=== PATIENT | female | born 1975 | race American Indian/Alaskan Native ===

== ENCOUNTER 2016-06-04 16:58 | Emergency (ER) | payer OTHER ==
[2016-06-04 17:13] VITALS: BMI 33.0
[2016-06-04 17:16] VITALS: BP 117/81; PULSE 86; RESP 16; TEMP 98.8; O2SAT 100
--- NOTE | 2016-06-04 17:41 | ED PDOC ---
Arrival/HPI - General Chief Complaint: Dental Pain Time Seen by Provider: 06/04/16 17:36 Historian: Patient - History of Present Illness Narrative History of Present Illness (Text): 06/04/16 17:37 41-year-old female presents today with a 2 day history of worsening left lower dental pain. Patient states she's been having problems with the teeth for a long time but over the past few days the pain has become severe. Patient states taking Tylenol for pain at home without improvement. Patient denies fevers or chills. Denies trismus or drooling. Patient states the pain radiates up into the jaw. No other complaints Past Medical History - Provider Review Nursing Documentation Reviewed: Yes - Travel History Have you recently traveled outside [place] w/in the past 3 mons?: No - Infectious Disease Hx of Infectious Diseases: None - Cardiac Hx Cardiac Disorders: No - Pulmonary Hx Respiratory Disorders: No - Neurological Hx Neurological Disorder: No - HEENT Hx HEENT Disorder: No - Renal Hx Renal Disorder: No - Endocrine/Metabolic Hx Systemic Lupus Erythematosus: Yes - Hematological/Oncological Hx Blood Disorders: No - Integumentary Hx Dermatological Disorder: No - Musculoskeletal/Rheumatological Hx Arthritis: Yes - Gastrointestinal Hx Gastrointestinal Disorders: No - Genitourinary/Gynecological Hx Genitourinary Disorders: No - Psychiatric Hx Psychophysiologic Disorder: No Hx Depression: No Hx Emotional Abuse: No Hx Physical Abuse: No Hx Substance Use: No - Past Surgical History Past Surgical History: No Previous - Anesthesia Hx Anesthesia: No Hx Anesthesia Reactions: No Hx Malignant Hyperthermia: No - Suicidal Assessment Feels Threatened In Home Enviroment: No Family/Social History - Physician Review Nursing Documentation Reviewed: Yes Family/Social History: Unknown Family HX Smoking Status: Never Smoked Hx Alcohol Use: No Hx Substance Use: No Allergies/Home Meds Allergies/Adverse Reactions: Allergies No Known Allergies Allergy (Verified 06/05/13 10:10) Home Medications: Home Meds Medication Instructions Recorded Confirmed Naproxen [Naproxen] 500 mg PO BID PRN 06/05/13 06/05/13 Review of Systems - Review of Systems Constitutional: absent: Fatigue, Fevers ENT: Other (toothache) Respiratory: absent: SOB, Cough Cardiovascular: absent: Chest Pain, Palpitations Gastrointestinal: absent: Abdominal Pain, Diarrhea, Nausea, Vomiting Genitourinary Female: absent: Dysuria, Frequency, Hematuria Musculoskeletal: absent: Arthralgias Skin: absent: Rash, Pruritis Neurological: absent: Headache, Dizziness Physical Exam Vital Signs Reviewed: Yes Vital Signs Temp Pulse Resp BP Pulse Ox 06/04/16 17:13 98.8 F 86 16 117/81 100 Temperature: Afebrile Blood Pressure: Normal Pulse: Regular Respiratory Rate: Normal Appearance: Positive for: Well-Appearing, Non-Toxic, Uncomfortable Pain Distress: Mild Mental Status: Positive for: Alert and Oriented X 3 - Systems Exam Head: Present: Atraumatic. No: Swelling Conjunctiva: Present: Normal Ears: Present: Normal, NORMAL TM Mouth: Present: Moist Mucous Membranes, Normal Lips, Normal Tounge. No: Drooling, Trismus, Normal Teeth (+ gingival edema, + left lower dental tenderness; no abscess, noted; no trismus or drooling. ) Pharnyx: Present: Normal. No: ERYTHEMA, EXUDATE Nose (External): Present: Atraumatic Nose (Internal): Present: Normal Inspection Neck: Present: Normal Range of Motion, Trachea Midline. No: Lymphadenopathy Respiratory/Chest: Present: Clear to Auscultation, Good Air Exchange. No: Respiratory Distress, Accessory Muscle Use Cardiovascular: Present: Regular Rate and Rhythm, Normal S1, S2. No: Murmurs Neurological: Present: GCS=15, Speech Normal Skin: Present: Warm Psychiatric: Present: Alert, Oriented x 3 Medical Decision Making ED Course and Treatment: 06/04/16 17:44 Patient is nontoxic well-appearing in no distress with stable vital signs No trismus or drooling, moist mucous membranes Amoxicillin Toradol I advised follow-up with the dentist within the next 2 days. I advised immediate return is symptoms worsen persist or if new concerning symptoms develop Patient verbalizes understanding of discharge instructions and need for immediate followup. Impression: Toothache Motrin every 6 hours as needed for pain Tramadol tablet every 6 hours as needed for moderate to severe pain: May cause drowsiness Amoxicillin 3 times daily 10 days Follow-up with the dentist within the next 2 days Return immediately if symptoms worsen persist or if new concerning symptoms develop Disposition/Present on Arrival - Present on Arrival Any Indicators Present on Arrival: No History of DVT/PE: No History of Uncontrolled Diabetes: No Urinary Catheter: No History of Decub. Ulcer: No History Surgical Site Infection Following: None - Disposition Have Diagnosis and Disposition been Completed?: Yes Diagnosis: Toothache Disposition: HOME/ ROUTINE Disposition Time: 17:38 Patient Plan: Discharge Condition: GOOD Discharge Instructions (ExitCare): Toothache (ED) Additional Instructions: Motrin every 6 hours as needed for pain Tramadol tablet every 6 hours as needed for moderate to severe pain: May cause drowsiness Amoxicillin 3 times daily 10 days Follow-up with the dentist within the next 2 days Return immediately if symptoms worsen persist or if new concerning symptoms develop Prescriptions: Amoxicillin 500 mg PO TID #30 tab Ibuprofen [Motrin] 600 mg PO Q6H PRN #20 tab PRN Reason: pain/fever reduction traMADol [Ultram] 50 mg PO Q6H PRN #10 tab PRN Reason: moderate to severe pain Referrals: Iker Bermeo DMD [Staff Provider] - [place] [facility] [place] [facility] [place] - Follow up with primary Forms: WORK NOTE
== END 2016-06-04 18:05 | disposition home or self-care (01) ==
LOC: ED 16:58
DX: K08.89 Other specified disorders of teeth and supporting structures (principal); M32.9 Systemic lupus erythematosus, unspecified
CPT/HCPCS: 96372; 99282; J1885

== ENCOUNTER 2016-07-02 16:38 | Emergency (ER) | payer OTHER ==
[2016-07-02 16:38] VITALS: BMI 33.0
[2016-07-02 16:49] VITALS: BP 108/73; PULSE 90; TEMP 98.8
--- NOTE | 2016-07-02 17:06 | ED PDOC ---
Arrival/HPI - General Chief Complaint: Lower Extremity Problem/Injury Time Seen by Provider: 07/02/16 17:02 Historian: Patient - History of Present Illness Narrative History of Present Illness (Text): 07/02/16 17:06 41 y/o female, no pmh, nkda, not on any control, c/o lt. calf pain x 3 days with no fall or trauma. 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 calf pain about 3 days ago, no chest pain or shortness of breath, no palpitation, no numbness or tingling, no dizziness, no change in vision, no other medical or psychological complaints. Past Medical History - Provider Review Nursing Documentation Reviewed: Yes - Infectious Disease Hx of Infectious Diseases: None - Cardiac Hx Cardiac Disorders: No - Pulmonary Hx Respiratory Disorders: No - Neurological Hx Neurological Disorder: No - HEENT Hx HEENT Disorder: No - Renal Hx Renal Disorder: No - Endocrine/Metabolic Hx Systemic Lupus Erythematosus: Yes - Hematological/Oncological Hx Blood Disorders: No - Integumentary Hx Dermatological Disorder: No - Musculoskeletal/Rheumatological Hx Arthritis: Yes Other/Comment: LUPUS - Gastrointestinal Hx Gastrointestinal Disorders: No - Genitourinary/Gynecological Hx Genitourinary Disorders: No - Psychiatric Hx Psychophysiologic Disorder: No Hx Depression: No Hx Emotional Abuse: No Hx Physical Abuse: No Hx Substance Use: No - Past Surgical History Past Surgical History: No Previous - Anesthesia Hx Anesthesia: No - Suicidal Assessment Feels Threatened In Home Enviroment: No Family/Social History - Physician Review Nursing Documentation Reviewed: Yes Family/Social History: Unknown Family HX Smoking Status: Never Smoked Hx Alcohol Use: No Hx Substance Use: No Allergies/Home Meds Allergies/Adverse Reactions: Allergies No Known Allergies Allergy (Verified 07/02/16 16:43) Home Medications: Home Meds Medication Instructions Recorded Confirmed Hydroxychloroquine Sulfate 200 mg PO BID 07/02/16 07/02/16 [Plaquenil] Naproxen [Naprosyn] 500 mg PO Q8 PRN 07/02/16 07/02/16 Review of Systems - Review of Systems Constitutional: absent: Fatigue, Fevers Eyes: absent: Vision Changes ENT: absent: Hearing Changes Respiratory: absent: SOB, Cough Cardiovascular: absent: Chest Pain Gastrointestinal: absent: Abdominal Pain, Nausea, Vomiting Musculoskeletal: Myalgias. absent: Arthralgias, Back Pain, Neck Pain, Joint Swelling Skin: absent: Rash, Pruritis, Skin Lesions Neurological: absent: Headache, Dizziness, Focal Weakness Physical Exam Vital Signs Reviewed: Yes Vital Signs Temp Pulse Resp BP Pulse Ox 07/02/16 17:11 98.8 F 90 18 108/73 97 07/02/16 16:45 98.8 F 90 16 108/73 100 Temperature: Afebrile Blood Pressure: Normal Pulse: Regular Respiratory Rate: Normal Appearance: Positive for: Well-Appearing, Non-Toxic, Comfortable Pain Distress: Moderate Mental Status: Positive for: Alert and Oriented X 3 - Systems Exam Head: Present: Atraumatic, Normocephalic Pupils: Present: PERRL Extroacular Muscles: Present: EOMI Conjunctiva: Present: Normal Mouth: Present: Moist Mucous Membranes Neck: Present: Normal Range of Motion Respiratory/Chest: Present: Clear to Auscultation, Good Air Exchange. No: Respiratory Distress, Accessory Muscle Use Cardiovascular: Present: Regular Rate and Rhythm, Normal S1, S2. No: Murmurs Abdomen: Present: Normal Bowel Sounds. No: Tenderness, Distention, Peritoneal Signs Back: Present: Normal Inspection Upper Extremity: Present: Normal Inspection. No: Cyanosis, Edema Lower Extremity: Present: Normal Inspection, Other (Lt. lower extremity: +ttp on the left calf gastrocnemius region, negative miguel and mohr signs, FROM without limitation, sensation intact, motor 5/5, +DPPT pulses, capillary refill < 2 seconds, neurovascular intact. ). No: Edema Neurological: Present: GCS=15, CN II-XII Intact, Speech Normal Skin: Present: Warm, Dry, Normal Color. No: Rashes Psychiatric: Present: Alert, Oriented x 3, Normal Insight, Normal Concentration Medical Decision Making ED Course and Treatment: 07/02/16 17:10 -CK -LLE venuous doppler -toradol IM -observe and reassess 07/02/16 18:34 -Labs are non-significant except CK 235, advised stay hydrated. -LLE venuous doppler: as per preliminary report, no acute DVT -Pain decreased, will discharge home. -Discharge home with motrin, flexeril, massage your leg and stretch it, avoid wearing high heels, no running up and down the stairs until pain improved, follow up with your own pmd and physical therapist within 2 days, return to the ER for any new or worsening signs or symptoms. - Lab Interpretations Lab Results: Lab Results 07/02/16 17:15: Total Creatine Kinase 235 H, CK-MB (CK-2) 1.4, CK-MB (CK-2) % Cancelled I have reviewed the lab results: Yes Interpretation: Abnormal lab values (CK 235) - RAD Interpretation Radiology Orders: 07/02/16 17:02 DUPLEX LOWER EXTRM VEIN LEFT [US] Stat LLE venuous doppler: as per preliminary report, no acute DVT Director Of Education And Training: Radiologist - Medication Orders Current Medication Orders: Discontinued Medications Ketorolac Tromethamine (Toradol) 60 mg IM STAT STA Stop: 07/02/16 17:03 Last Admin: 07/02/16 17:28 Dose: 60 mg - PA / LIFE TRAINER / Resident Statement / has reviewed & agrees with the documentation as recorded. Disposition/Present on Arrival - Present on Arrival Any Indicators Present on Arrival: No History of DVT/PE: No History of Uncontrolled Diabetes: No Urinary Catheter: No History of Decub. Ulcer: No History Surgical Site Infection Following: None - Disposition Have Diagnosis and Disposition been Completed?: Yes Diagnosis: Leg pain Disposition: HOME/ ROUTINE Disposition Time: 18:35 Patient Plan: Discharge Condition: GOOD Additional Instructions: Discharge home with motrin, flexeril, massage your leg and stretch it, avoid wearing high heels, no running up and down the stairs until pain improved, follow up with your own pmd and physical therapist within 2 days, return to the ER for any new or worsening signs or symptoms. Prescriptions: Cyclobenzaprine [Cyclobenzaprine HCl] 10 mg PO TID #21 tab Ibuprofen [Motrin] 600 mg PO QID PRN #24 tab PRN Reason: Other Referrals: [facility] [place] [facility] [place] - Follow up with primary Sonny Gallegos MD [Staff Provider] - Follow up with primary Forms: WORK NOTE
[2016-07-02 17:14] VITALS: RESP 18; O2SAT 97
--- NOTE | 2016-07-02 18:38 | US ---
PROCEDURE: Left lower extremity venous US HISTORY: Leg pain and swelling. Evaluate for DVT. PHYSICIAN(S): Дмитрий Beltran MD. TECHNIQUE: Duplex sonography and color-flow Doppler with graded compression were used to evaluate the deep venous system of the left lower extremity. The exam is somewhat limited by body habitus and edema. FINDINGS: The visualized deep venous system of the left lower extremity is sonographically normal and compressible. Normal wave forms and augmentation are seen. There is no sonographic evidence for deep venous thrombosis in the visualized segments of the left lower extremity. IMPRESSION: 1. No sonographic evidence for deep venous thrombosis in the visualized segments of the left lower extremity.
== END 2016-07-02 18:44 | disposition home or self-care (01) ==
LOC: ED 16:38
DX: M79.605 Pain in left leg (principal); M32.9 Systemic lupus erythematosus, unspecified
CPT/HCPCS: 82550; 82553; 93971; 96372; 99284; J1885

== ENCOUNTER 2017-02-05 14:34 | Inpatient (IN) | payer OTHER ==
[2017-02-05 14:58] VITALS: BMI 26.6
--- NOTE | 2017-02-05 15:35 | ED PDOC ---
Arrival/HPI - General Chief Complaint: Eye Problem Time Seen by Provider: 02/05/17 15:05 - History of Present Illness Narrative History of Present Illness (Text): 02/05/17 15:33 41 yo female, hx of ra, presents with left "eye lid drooping" x 2 days. states started out of nowhere. reports "leg swelling". no fevers, no other weakness, no other complaints. Past Medical History - Provider Review Nursing Documentation Reviewed: Yes - Infectious Disease Hx of Infectious Diseases: None - Cardiac Hx Cardiac Disorders: No - Pulmonary Hx Respiratory Disorders: No - Neurological Hx Neurological Disorder: No - HEENT Hx HEENT Disorder: No - Renal Hx Renal Disorder: No - Endocrine/Metabolic Hx Hyperthyroidism: Yes Hx Systemic Lupus Erythematosus: Yes - Hematological/Oncological Hx Blood Disorders: No - Integumentary Hx Dermatological Disorder: No - Musculoskeletal/Rheumatological Hx Arthritis: Yes Hx Rheumatoid Arthritis: Yes Other/Comment: LUPUS - Gastrointestinal Hx Gastrointestinal Disorders: No - Genitourinary/Gynecological Hx Genitourinary Disorders: No - Psychiatric Hx Psychophysiologic Disorder: No Hx Depression: No Hx Emotional Abuse: No Hx Physical Abuse: No Hx Substance Use: No - Past Surgical History Past Surgical History: No Previous - Anesthesia Hx Anesthesia: No Hx Anesthesia Reactions: No - Suicidal Assessment Feels Threatened In Home Enviroment: No Family/Social History - Physician Review Nursing Documentation Reviewed: Yes Family/Social History: Unknown Family HX Smoking Status: Never Smoked Hx Alcohol Use: No Hx Substance Use: No Allergies/Home Meds Allergies/Adverse Reactions: Allergies No Known Allergies Allergy (Verified 07/02/16 16:43) Home Medications: Home Meds Medication Instructions Recorded Confirmed Hydroxychloroquine Sulfate 200 mg PO BID 07/02/16 02/05/17 [Plaquenil] Naproxen [Naprosyn] 500 mg PO Q8 PRN 07/02/16 02/05/17 Folic Acid 1 mg PO DAILY 02/05/17 02/05/17 Methotrexate 3 mg PO QWK 02/05/17 02/05/17 Review of Systems - Review of Systems Constitutional: Normal Eyes: Normal ENT: Normal Respiratory: Normal Cardiovascular: Normal Gastrointestinal: Normal Genitourinary Female: Normal Musculoskeletal: Normal Skin: Normal Neurological: Other (eyelid droop) Endocrine: Normal Hemo/Lymphatic: Normal Psychiatric: Normal Physical Exam Vital Signs Temp Pulse Resp BP Pulse Ox 02/05/17 16:40 98.6 F 88 16 142/81 98 02/05/17 14:58 98.6 F 78 16 139/64 100 Temperature: Afebrile Blood Pressure: Normal Pulse: Regular Respiratory Rate: Normal Appearance: Positive for: Well-Appearing, Non-Toxic, Comfortable Pain Distress: None Mental Status: Positive for: Alert and Oriented X 3 - Systems Exam Head: Present: Atraumatic, Normocephalic, Other ((+)left pytosis) Pupils: Present: PERRL Extroacular Muscles: Present: EOMI Conjunctiva: Present: Normal Mouth: Present: Moist Mucous Membranes Neck: Present: Normal Range of Motion Respiratory/Chest: Present: Clear to Auscultation, Good Air Exchange. No: Respiratory Distress, Accessory Muscle Use Cardiovascular: Present: Regular Rate and Rhythm, Normal S1, S2. No: Murmurs Abdomen: Present: Normal Bowel Sounds. No: Tenderness, Distention, Peritoneal Signs Back: Present: Normal Inspection Upper Extremity: Present: Normal Inspection. No: Cyanosis, Edema Lower Extremity: Present: Normal Inspection. No: Edema Neurological: Present: GCS=15, CN II-XII Intact, Speech Normal Skin: Present: Warm, Dry, Normal Color. No: Rashes Psychiatric: Present: Alert, Oriented x 3, Normal Insight, Normal Concentration Medical Decision Making ED Course and Treatment: 02/05/17 18:23 r/o mysthenia, dvt, metabolic, infectious etilogy- labs pending discussed with dr segal engagement quality consultant, requests mri/mra. dr toscano accepts. pt neuro intact. - Lab Interpretations Lab Results: 02/05/17 16:03 02/05/17 16:03 Lab Results 02/05/17 16:03: Urine HCG, Qual Negative 02/05/17 16:03: Sodium 140, Potassium 3.9, Chloride 103, Carbon Dioxide 26, Anion Gap 15, BUN 9, Creatinine 0.9, Est GFR ( Amer) > 60, Est GFR (Non- Af Amer) > 60, Random Glucose 86, Calcium 9.2, Total Bilirubin 0.3, AST 32, ALT 22, Alkaline Phosphatase 69, Total Protein 9.4 H, Albumin 4.1, Globulin 5.3, Albumin/Globulin Ratio 0.8 L 02/05/17 16:03: WBC 3.7 L, RBC 3.51, Hgb 10.2 L, Hct 31.5 L, MCV 89.7, MCH 29.1 , MCHC 32.4, RDW 14.0, Plt Count 327, MPV 9.8, Gran % 72.3 H, Lymph % (Auto) 17.5 L, Smith % (Auto) 5.9, Eos % (Auto) 3.8, Baso % (Auto) 0.5, Gran # 2.68, Lymph # 0.7 L, Smith # 0.2, Eos # 0.1, Baso # 0.02 02/05/17 16:00: Triglycerides 134, Cholesterol 124 L, LDL Cholesterol Direct 62 , HDL Cholesterol 29 - RAD Interpretation Radiology Orders: 02/05/17 15:31 CHEST ONE VIEW [RAD] Stat DUPLEX LOWER EXTRM VEIN BILAT [US] Stat 02/05/17 16:46 BRAIN WITHOUT CONTRAST [MRI] Stat MRA HEAD WITHOUT CONTRAST [MRI] Stat - Medication Orders Current Medication Orders: Discontinued Medications Aspirin (Ecotrin) 81 mg PO DAILY [facility] Last Admin: 02/07/17 09:41 Dose: 81 mg Atorvastatin Calcium (Lipitor) 40 mg PO DIN [facility] Last Admin: 02/06/17 17:21 Dose: 40 mg Folic Acid (Folic Acid) 1 mg PO DAILY [facility] Last Admin: 02/07/17 09:42 Dose: 1 mg Hydroxychloroquine Sulfate (Plaquenil) 200 mg PO BID [facility] Last Admin: 02/07/17 09:42 Dose: 200 mg Sodium Chloride (Sodium Chloride 0.9%) 500 mls @ 999 mls/hr IV .Q31M STA Stop: 02/06/17 07:37 Last Admin: 02/06/17 08:30 Dose: 999 mls/hr eMAR Start Stop Document 02/06/17 08:30 VELMA (Rec: 02/06/17 10:26 VELMA [id number]) Intravenous Solution Start Date 02/06/17 Start Time 08:30 End Date 02/06/17 End time 09:50 Total Infusion Time 80 Levothyroxine Sodium (Synthroid) 100 mcg PO STAT ONE Stop: 02/06/17 13:21 Last Admin: 02/06/17 17:22 Dose: 100 mcg Methotrexate (Methotrexate) 3 mg PO QWK [place] Pneumococcal Polyvalent Vaccine (Pneumovax 23 Vaccine) 0.5 ml IM .ONCE ONE Stop: 02/05/17 22:13 Disposition/Present on Arrival - Present on Arrival Any Indicators Present on Arrival: No History of DVT/PE: No History of Uncontrolled Diabetes: No Urinary Catheter: No History of Decub. Ulcer: No History Surgical Site Infection Following: None - Disposition Have Diagnosis and Disposition been Completed?: Yes Diagnosis: Ptosis Disposition: HOSPITALIZED Disposition Time: 06:00 Condition: STABLE
[2017-02-05 16:20] LABS: BASO # 0.02 K/mm3 (0.0-2.0); BASO % 0.5 % (0.0-3.0); EOS # 0.1 (0.0-0.7); EOS % 3.8 % (1.5-5.0); GRAN # 2.68 (1.4-6.5); GRAN % 72.3 % (50.0-68.0); HEMATOCRIT 31.5 % (36.0-48.0); LYMPH # 0.7 (1.2-3.4); LYMPH % 17.5 % (22.0-35.0); MEAN CELL VOLUME 89.7 fl (80.0-105.0); MEAN CORPUSCULAR HEMOGLOBIN 29.1 pg (25.0-35.0); MEAN CORPUSCULAR HGB CONC 32.4 g/dl (31.0-37.0); MEAN PLATELET VOLUME 9.8 fl (7.0-11.0); MONO # 0.2 (0.1-0.6); MONO % 5.9 % (1.0-6.0); WHITE BLOOD COUNT 3.7 10^3/ul (4.5-11.0)
[2017-02-05 16:21] LABS: ALB/GLOB RATIO 0.8 (1.1-1.8); ALKALINE PHOSPHATASE 69 U/L (38-126); ALT/SGPT 22 U/L (7-56); AST/SGOT 32 U/L (14-36); BILIRUBIN,TOTAL 0.3 mg/dL (0.2-1.3); BLOOD UREA NITROGEN 9 mg/dL (7-21); CALCIUM 9.2 mg/dL (8.4-10.5); CARBON DIOXIDE 26 mmol/L (21-33); CHLORIDE 103 mmol/L (98-107); GFR AFRICAN-AMERICAN > 60; GLUCOSE,RANDOM 86 mg/dL (70-110); POTASSIUM 3.9 mmol/L (3.6-5.0); SODIUM 140 mmol/L (132-148); TOTAL PROTEIN 9.4 g/dL (5.8-8.3)
[2017-02-05 18:04] LABS: PH,URINE 8.5 (4.7-8.0); URINE BILIRUBIN NEGATIVE (NEGATIVE); URINE BLOOD NEGATIVE (NEGATIVE); URINE GLUCOSE (UA) NEGATIVE (NEGATIVE); URINE KETONE NEGATIVE (NEGATIVE); URINE LEUKOCYTE ESTERASE NEGATIVE Leu/uL (NEGATIVE); URINE PROTEIN NEGATIVE mg/dL (<30 mg/dL); URINE UROBILINOGEN 0.2 E.U./dL (<1 E.U./dL)
[2017-02-05 18:07] LABS: URINE APPEARANCE CLEAR (CLEAR); URINE COLOR YELLOW (YELLOW)
--- NOTE | 2017-02-05 18:16 | RAD ---
HISTORY: weakness COMPARISON: Chest x-ray 06/05/13 TECHNIQUE: Chest, one view. FINDINGS: External artifact related to the patient's hair obscures evaluation of the lung apices/soft tissues of the neck. LUNGS: No focal consolidation. Please note that chest x-ray has limited sensitivity for the detection of pulmonary masses. PLEURA: No significant pleural effusion identified. No definite pneumothorax . CARDIOVASCULAR: Heart size appears within normal limits. OSSEOUS STRUCTURES: No acute osseous abnormality identified. VISUALIZED UPPER ABDOMEN: Unremarkable. OTHER FINDINGS: None. IMPRESSION: No focal consolidation, significant pleural effusion, or definite pneumothorax identified.
--- NOTE | 2017-02-05 18:45 | MRI ---
EXAM: MR Angiography Head Without Intravenous Contrast EXAM DATE/TIME: 02/05/2017 4:46 PM CLINICAL HISTORY: The patient age is 41 years old and is female; Signs and symptoms; Other: Left eye droop; Patient HX: Patient has a history of lupus. Left eye droop. Raymundo wong; Additional info: [facility] exam id and description: Mri mra heads mra head without contrast TECHNIQUE: Magnetic resonance angiography images of the head without intravenous contrast. COMPARISON: No relevant prior studies available. FINDINGS: Right internal carotid artery: No acute findings. Intracranial segment is patent with no significant stenosis. No aneurysm. Right anterior cerebral artery: No occlusion or significant stenosis. No aneurysm. Right middle cerebral artery: There is heterogeneous signal intensity of the M1 segment of the right middle cerebral artery, without significant stenosis or occlusion. There is no significant stenosis of the M2 segments of the right middle cerebral artery. No aneurysm. Right posterior cerebral artery: There is hypoplasia of the P1 segment of the right posterior cerebral artery. The right superior cerebellar artery and the right P1 segment appeared to have a common origin. The right posterior cerebral artery is supplied by both the anterior and posterior circulation. No occlusion. No aneurysm. Right vertebral artery: A dominant left vertebral artery is identified, without significant stenosis or occlusion. Left internal carotid artery: No acute findings. Intracranial segment is patent with no significant stenosis. No aneurysm. Left anterior cerebral artery: No occlusion or significant stenosis. No aneurysm. Left middle cerebral artery: No occlusion or significant stenosis. No aneurysm. Left posterior cerebral artery: No occlusion or significant stenosis. No aneurysm. Left vertebral artery: The right vertebral artery is small in caliber on the raw data. Flow within the right vertebral artery is poorly visualized, suggestive of occlusion. Basilar artery: No occlusion or significant stenosis. No aneurysm. IMPRESSION: 1.A dominant left vertebral artery is identified. The right vertebral artery is small in caliber on the raw data. Flow within the right vertebral artery is poorly visualized, suggestive of occlusion. Correlation with an MRA of the neck with/without contrast is recommended. 2.Additional findings described above.
--- NOTE | 2017-02-05 18:58 | MRI ---
EXAM: MR Head Without Intravenous Contrast EXAM DATE/TIME: 02/05/2017 4:46 PM CLINICAL HISTORY: The patient age is 41 years old and is female; Signs and symptoms; Other: Left eye droop; Patient HX: Patient has a history of lupus. Left eye droop. Raymundo wong; Additional info: [facility] exam id and description: Mri br s brain without contrast TECHNIQUE: Magnetic resonance images of the head/brain without intravenous contrast in multiple planes. COMPARISON: No relevant prior studies available. FINDINGS: Brain: There is no restricted diffusion within the brain to suggest acute ischemic change. There are a few tiny foci of high FLAIR signal intensity within the cerebral white matter. There is no mass effect or restricted diffusion associated with these foci. This white matter disease is nonspecific as to etiology. Possible etiologies include chronic small vessel ischemic disease, foci of demyelination, post-traumatic change, as well as additional infectious, inflammatory and autoimmune etiologies. No cerebral edema. No midline shift. No abnormal subdural fluid collections. Ventricles: No ventriculomegaly. Bones/joints: No acute abnormality. Lymph nodes: There is an intraparotid lymph node or nodule within the right parotid gland measuring 0.8 x 0.6 cm. Sinuses: Mucous retention cysts or polyps are identified within the left maxillary sinus and frontal sinus. There is opacification of a left posterior ethmoid air cell. Mastoid air cells: No mastoid effusion. Orbits: No acute abnormality, as visualized. Sella: There is an empty sella. IMPRESSION: 1. There is no restricted diffusion within the brain to suggest acute ischemic change. 2. There are a few tiny foci of high FLAIR signal intensity within the cerebral white matter. This white matter disease is nonspecific as to etiology, as detailed above. 3. There is an intraparotid lymph node or nodule within the right parotid gland measuring 0.8 x 0.6 cm. 4. Paranasal sinus disease is noted above. 5. Incidental/non-acute findings are described above.
--- NOTE | 2017-02-05 19:10 | CP.PCM.HP ---
<Martín Smith - Last Filed: 02/06/17 16:36> History of Present Illness - History of Present Illness History of Present Illness: 41 year old female with a past medical history of SLE, Rheumatoid arthritis, hypothyroidism who comes in complaining of left eyelid drooping and bilateral leg swelling for the past two days. The patient denies any inciting events leading up to the symptoms. The patient denies alleiviating or modifying factors. The patient denies any headaches, double vision, chest pain, shortness of breath, lightheadedness, dizziness, changes in vision, syncopal episodes, sick contacts, recent travel, recent ocular surgery, or any other complaints. Past medical history: See HPI Past surgical history: 2 Abortions, 1 Allergies: Seasonal Medications: Reviewed. See MAR Family history: Mom(HTN, DM). Sister( Breast cancer) PMD: None Sr. Strategic Sourcing Manager:Dr. Joseph Present on Admission - Present on Admission Any Indicators Present on Admission: No Review of Systems - Constitutional Constitutional: As Per HPI - EENT Eyes: As Per HPI Ears: As Per HPI Nose/Mouth/Throat: As Per HPI - Cardiovascular Cardiovascular: As Per HPI - Respiratory Respiratory: As Per HPI - Gastrointestinal Gastrointestinal: As Per HPI - Musculoskeletal Musculoskeletal: As Per HPI - Integumentary Integumentary: As Per HPI - Neurological Neurological: As Per HPI - Psychiatric Psychiatric: As Per HPI - Endocrine Endocrine: As Per HPI - Hematologic/Lymphatic Hematologic: As Per HPI Past Patient History - Infectious Disease Hx of Infectious Diseases: None - Past Social History Smoking Status: Never Smoked - CARDIAC Hx Cardiac Disorders: No - PULMONARY Hx Respiratory Disorders: No - NEUROLOGICAL Hx Neurological Disorder: No - HEENT Hx HEENT Problems: No - RENAL Hx Chronic Kidney Disease: No - ENDOCRINE/METABOLIC Hx Hyperthyroidism: Yes Hx Systemic Lupus Erythematosus: Yes - HEMATOLOGICAL/ONCOLOGICAL Hx Blood Disorders: No - INTEGUMENTARY Hx Dermatological Problems: No - MUSCULOSKELETAL/RHEUMATOLOGICAL Hx Arthritis: Yes Hx Rheumatoid Arthritis: Yes Other/Comment: LUPUS - GASTROINTESTINAL Hx Gastrointestinal Disorders: No - GENITOURINARY/GYNECOLOGICAL Hx Genitourinary Disorders: No - PSYCHIATRIC Hx Psychophysiologic Disorder: No Hx Depression: No Hx Emotional Abuse: No Hx Physical Abuse: No Hx Substance Use: No - SURGICAL HISTORY Hx Surgeries: No - ANESTHESIA Hx Anesthesia: No Hx Anesthesia Reactions: No Meds Allergies/Adverse Reactions: Allergies Allergy/AdvReac Type Severity Reaction Status Date / Time No Known Allergies Allergy Verified 07/02/16 16:43 Physical Exam - Head Exam Head Exam: ATRAUMATIC, NORMAL INSPECTION, NORMOCEPHALIC - Eye Exam Pupil Exam: NORMAL ACCOMODATION, PERRL Additional comments: Ptosis appreciated in the left eye. - ENT Exam ENT Exam: Mucous Membranes Moist, Normal Exam - Neck Exam Neck exam: Positive for: Normal Inspection. Negative for: Lymphadenopathy, Thyromegaly - Respiratory Exam Respiratory Exam: Clear to Auscultation Bilateral, NORMAL BREATHING PATTERN. absent: Chest Wall Tenderness, Prolonged Expiratory Phase, Respiratory Distress - Cardiovascular Exam Cardiovascular Exam: REGULAR RHYTHM, +S1, +S2. absent: Gallop, Rubs - GI/Abdominal Exam GI & Abdominal Exam: Normal Bowel Sounds, Soft. absent: Hyperactive Bowel Sounds, Hypoactive Bowel Sounds, Organomegaly, Tenderness - Extremities Exam Extremities exam: Positive for: normal inspection. Negative for: full ROM, joint swelling, pedal edema, tenderness - Back Exam Back exam: NORMAL INSPECTION. absent: CVA tenderness (L), CVA tenderness (R), paraspinal tenderness - Neurological Exam Neurological exam: Alert, CN II-XII Intact, Oriented x3 - Psychiatric Exam Psychiatric exam: Normal Affect, Normal Mood - Skin Skin Exam: Dry, Intact, Normal Color Results - Vital Signs Recent Vital Signs: Last Vital Signs Temp 98.6 F 02/05/17 16:40 Pulse 88 02/05/17 16:40 Resp 16 02/05/17 16:40 BP 142/81 02/05/17 16:40 Pulse Ox 98 02/05/17 16:40 - Labs Result Diagrams: 02/06/17 05:30 02/06/17 05:30 Labs: Laboratory Results - last 24 hr 02/05/17 18:02 Urine Color Yellow Urine Appearance Clear Urine pH 8.5 Ur Specific [place] 1.015 Urine Protein Negative Urine Glucose (UA) Negative Urine Ketones Negative Urine Blood Negative Urine Nitrate Negative Urine Bilirubin Negative Urine Urobilinogen 0.2 Ur Leukocyte Esterase Negative Assessment & Plan - Assessment and Plan (Free Text) Assessment: 41 year old female with a past medical history of Hypothryodism, SLE, and R.A. who was admitted for acute ptosis of left eye. Plan: 1. Acute ptosis of left eye (M.G. vs. CVA vs. CN Palsy vs. TIA vs. Hypothryoidism) -NIHSS Score: 1. Physical exam was only pertinent for left eyelid drooping. Motor strengthy intact bilaterally. -MRI head findings: no restricted diffusion within the brain to suggest acute ischemic change, few tiny foci of high FLAIR signal intentsityin within the cerebral white matter. White matter disease is nonspecific. Intraparotid lymph node or nodule within the right parotid gland measuring .8x .6 cm. -MRA head w/o contrast: dominant left vertebral artery, right vertebral artery is small in caliber on raw data, flow within the right vertebral artery is poorly visualized, suggestive of occlusion, correlate with MRA of neck with/ without contrast. -Spoke with [facility]: Dr. Lara regarding imaging and he recommended an MRA of neck w/o contrast to be ordered. Will f/u with rec's. -Aspirin and Lipitor started. -Neurology consulted. Will f/u with rec's. 2. Acute leg swelling -Duplex U/s ordered. Will f/u with results. 3. h/o of SLE -continue home meds. 4. h/o of Rheumatoid arthritis -continue home meds 5.h/o of Hypothyroidism -continue home meds DVT ppx - Heparin 5000 SC Q12. <Peter Campos - Last Filed: 02/06/17 18:37> Results - Vital Signs Recent Vital Signs: Last Vital Signs Temp 98.4 F 02/06/17 08:48 Pulse 75 02/06/17 18:00 Resp 20 02/06/17 08:48 BP 112/67 02/06/17 08:48 Pulse Ox 98 02/06/17 08:48 - Labs Result Diagrams: 02/06/17 05:30 02/06/17 05:30 Labs: Laboratory Results - last 24 hr 02/05/17 02/05/17 02/05/17 20:06 20:06 20:06 WBC RBC Hgb Hct MCV MCH MCHC RDW Plt Count MPV Gran % Lymph % (Auto) [place] % (Auto) Eos % (Auto) Baso % (Auto) Gran # Lymph # [place] # Eos # Baso # ESR 120 H PT 12.0 INR 1.10 H APTT 33.0 Sodium Potassium Chloride Carbon Dioxide Anion Gap BUN Creatinine Est GFR ( Amer) Est GFR (Non-Af Amer) Random Glucose Calcium Total Bilirubin AST ALT Alkaline Phosphatase C-React Prot High Sens > 15.00 H Total Protein Albumin Globulin Albumin/Globulin Ratio Thyroxine (T4) Total T3 TSH 3rd Generation 36.90 H 02/06/17 02/06/17 02/06/17 05:30 05:30 08:00 WBC 2.8 L* D RBC 3.49 L Hgb 9.9 L Hct 31.1 L MCV 89.1 MCH 28.4 MCHC 31.8 RDW 14.2 Plt Count 325 MPV 10.0 Gran % 53.9 Lymph % (Auto) 32.4 [place] % (Auto) 10.5 H Eos % (Auto) 2.5 Baso % (Auto) 0.7 Gran # 1.48 Lymph # 0.9 L [place] # 0.3 Eos # 0.1 Baso # 0.02 ESR PT INR APTT Sodium 143 Potassium 4.0 Chloride 107 Carbon Dioxide 22 Anion Gap 18 BUN 8 Creatinine 0.7 Est GFR ( Amer) > 60 Est GFR (Non-Af Amer) > 60 Random Glucose 96 Calcium 9.1 Total Bilirubin 0.4 AST 44 H D ALT 18 Alkaline Phosphatase 66 C-React Prot High Sens Total Protein 8.9 H Albumin 3.9 Globulin 5.0 Albumin/Globulin Ratio 0.8 L Thyroxine (T4) 5.2 L Total T3 1.29 TSH 3rd Generation Attending/Attestation - Attestation I have personally seen and examined this patient.: Yes I have fully participated in the care of the patient.: Yes I have reviewed all pertinent clinical information: Yes Notes (Text): I have seen and examined the patient at bedside. Agree with the above note with the following additions/ exceptions: Briefly this is 41 year old female with history of SLE, Rheumatoid arthritis, hypothyroidism who comes for evaluation of acute onset of ptosis x 1 day. Degree of ptosis does not vary over the course of the day or with fatigue. No associated headache or diplopia. No history of ocular surgery, trauma and does not wear contact lens. There is no FH of ptosis. Pupils are equal round and reactive. MRI and MRA reviewed. MRA neck pending for evaluation of right vertebral artery. Duplex LE pending. Patient was recently diagnosed with hypothyroidism and was started on synthroid. Endo consult pending. Upon discharge patient will follow up with Dr Joseph. Dr Peter Campos
--- NOTE | 2017-02-05 19:28 | US ---
HISTORY: Leg pain and swelling. Evaluate for DVT PHYSICIAN(S): Дмитрий Beltran MD. TECHNIQUE: Duplex sonography and color-flow Doppler with graded compression were used to evaluate the deep venous systems of both lower extremities. FINDINGS: The visualized deep venous systems of both lower extremities are sonographically normal and compressible. Normal wave forms and augmentation are seen. There is no sonographic evidence for deep venous thrombosis in the visualized segments of both lower extremities. IMPRESSION: No sonographic evidence for deep venous thrombosis in the visualized segments of both lower extremities.
[2017-02-05 20:05] LABS: CHOLESTEROL 124 mg/dL (130-200)
[2017-02-05 20:23] LABS: INR 1.1 (0.93-1.08)
[2017-02-05] MEDS ORDERED: Pneumococcal 23-Valent Vaccine IM ONE (22:12)
[2017-02-05] MEDS ORDERED: Influenza Vaccine 60 mcg/0.5 mL SYR (4YR UP) IM ONE (22:12)
[2017-02-06 03:18] VITALS: RESP 20
[2017-02-06] MEDS ORDERED: Sodium Chloride 0.9% 500 ML IV STA (07:07)
[2017-02-06 07:20] LABS: ALB/GLOB RATIO 0.8 (1.1-1.8); ALKALINE PHOSPHATASE 66 U/L (38-126); ALT/SGPT 18 U/L (7-56); AST/SGOT 44 U/L (14-36); BILIRUBIN,TOTAL 0.4 mg/dL (0.2-1.3); BLOOD UREA NITROGEN 8 mg/dL (7-21); CALCIUM 9.1 mg/dL (8.4-10.5); CARBON DIOXIDE 22 mmol/L (21-33); CHLORIDE 107 mmol/L (98-107); GFR AFRICAN-AMERICAN > 60; GLUCOSE,RANDOM 96 mg/dL (70-110); SODIUM 143 mmol/L (132-148); TOTAL PROTEIN 8.9 g/dL (5.8-8.3)
[2017-02-06 07:40] LABS: BASO # 0.02 K/mm3 (0.0-2.0); BASO % 0.7 % (0.0-3.0); EOS # 0.1 (0.0-0.7); EOS % 2.5 % (1.5-5.0); GRAN # 1.48 (1.4-6.5); GRAN % 53.9 % (50.0-68.0); HEMATOCRIT 31.1 % (36.0-48.0); LYMPH # 0.9 (1.2-3.4); LYMPH % 32.4 % (22.0-35.0); MEAN CELL VOLUME 89.1 fl (80.0-105.0); MEAN CORPUSCULAR HEMOGLOBIN 28.4 pg (25.0-35.0); MEAN CORPUSCULAR HGB CONC 31.8 g/dl (31.0-37.0); MONO # 0.3 (0.1-0.6); MONO % 10.5 % (1.0-6.0); RED CELL DISTRIBUTION WIDTH 14.2 % (11.5-14.5)
[2017-02-06 07:42] LABS: WHITE BLOOD COUNT 2.8 10^3/ul (4.5-11.0)
[2017-02-06 08:59] LABS: T4 5.2 ug/dL (5.5-11.0)
[2017-02-06 09:13] LABS: T3 1.29 ng/mL (0.97-1.69)
[2017-02-06] MEDS ORDERED: Gadodiamide 287 MG/ML VIAL (20ML) IV ONE (11:05)
--- NOTE | 2017-02-06 12:35 | MRI ---
PROCEDURE: MR Angiography of the neck with and without contrast HISTORY: abnormal findings on mra COMPARISON: None available. TECHNIQUE: Contrast enhanced and [id number] angiography of the neck was performed. Rotating 3D maximum intensity projection images of the cervical carotid and vertebral arteries were generated. 20 cc of Omniscan FINDINGS: RIGHT CAROTID ARTERIES: Common Carotid Artery: Normal. Carotid Bifurcation: Normal. Internal Carotid Artery:Normal. External Carotid Artery (proximal branches): Normal. LEFT CAROTID ARTERIES: Common Carotid Artery: Normal. Carotid Bifurcation: Normal. Internal Carotid Artery:Normal. External Carotid Artery (proximal branches): Normal. VERTEBRAL ARTERIES: Right Vertebral Artery: Not visualize, probably hypoplastic Left Vertebral Artery: Normal. OTHER FINDINGS: None. 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 No evidence of carotid stenosis.
[2017-02-06] MEDS ORDERED: Levothyroxine 100 MCG TAB PO ONE (13:20)
--- NOTE | 2017-02-06 14:41 | CON ---
DATE: NEUROLOGY CONSULTATION REASON FOR CONSULTATION: Drooping of the left eye. HISTORY OF PRESENT ILLNESS: The patient is a 41-year-old female who has been asked for evaluation of drooping of the left eyelid. Her symptoms started about 2 days ago. Along with that she was experiencing some swelling of the right ankle. The patient does have history of rheumatoid arthritis and lupus. The patient denied any focal weakness in arms or legs. Denied to have any double vision. Denies having any headaches. Because of her symptoms, that is why she came to the emergency room. At the moment her droopiness is better. Denies any other complaints. PAST MEDICAL HISTORY: Includes rheumatoid arthritis, , and hypothyroidism. MEDICATIONS: Included naproxen p.r.n., methotrexate, Plaquenil, and folic acid. ALLERGIES: NO KNOWN DRUG ALLERGIES. FAMILY HISTORY: Mother has hypertension and diabetes. Sister has breast cancer. SOCIAL HISTORY: Denies smoking, use of alcohol, or illicit drugs. REVIEW OF SYSTEMS: Denies any headache, dizziness, chest pain, shortness of breath, abdominal pain, constipation, diarrhea, dysuria, cough or sputum production. PHYSICAL EXAMINATION: GENERAL: The patient is a middle-aged pleasant female lying on the bed, in no acute distress. VITAL SIGNS: Her blood pressure is 95/53, heart rate 72 per minute, breathing at a rate of 16 per minute, and temperature is 98 degrees Fahrenheit. HEENT: Head is normocephalic and atraumatic. NECK: Supple. There are no carotid bruit. LUNGS: Clear. CARDIOVASCULAR: S1 and S2 audible, no murmurs. ABDOMEN: Soft and nontender with bowel sounds present. NEUROLOGIC: Mental status, the patient is awake, alert, oriented to time, place and person. Speech is fluent. Naming and repetition is normal. Memory and cognition are intact. Cranial Nerve Examination: Pupils are 3 mm bilaterally reactive to light. Visual bang are full. Extraocular movements are intact. There is no facial asymmetry. The palate is upgoing bilaterally and tongue is midline. Motor Examination: Tone is normal. Power is 5/5 bilaterally in all extremities. Reflexes are +1 and symmetrical. Plantars downgoing bilaterally. Cerebellar examination, [id number] shows no dysmetria. LABORATORY DATA: Reviewed shows WBC 0.7, hemoglobin 10.9, hematocrit 31.5, and platelets of 327. Her sodium is 133, potassium 4.0, chloride 107, carbon dioxide content of 22, BUN of 18, creatinine 0.7, and glucose of 96. She had an MRI of the brain done shows no restricted diffusion within the brain to suggest ischemic change. Few tiny foci of high FLAIR or signal intensity within the cerebral white matter, nonspecific. Intraparotid lymph node or nodule within the right parotid gland. Paranasal sinus disease. She also had MRA of the brain, which shows no evidence of aneurysm. Dominant left vertebral artery is identified. Right vertebral artery is small in caliber on the raw data flow signal within right vertebral artery poorly visualized occlusion. IMPRESSION: Status post ptosis of the left eyelid, possibly secondary to underlying autoimmune disease causing possible vasculitis. RECOMMENDATIONS: 1. At the moment, the patient has no focal neurological deficit and the ptosis has resolved. 2. The patient to be continued on her methotrexate and Plaquenil. 3. The patient is ruled out for any stroke versus TIA. 4. The patient will be followed up as an outpatient. 5. No further neurological recommendations at present. Please call Neurology on an as-needed basis. Thank you for the opportunity to participate in the care of this patient. Romina Campos MD
--- NOTE | 2017-02-06 16:39 | CP.PCM.PN ---
<Martín Smith - Last Filed: 02/06/17 16:45> Subjective - Date & Time of Evaluation Date of Evaluation: 02/06/17 Time of Evaluation: 16:37 - Subjective Subjective: Patient seen and examined at bedside. Per nursing no acute events occurred overnight. The patient denies any chest pain, shortness of breath, fevers, chills, nausea, vomiting, lightheadedness, dizziness, abdominal pain, syncopal episodes, numbness or weakness in the lower extremities or any other complaints. Objective - Vital Signs/Intake and Output Vital Signs (last 24 hours): Temp Pulse Resp BP Pulse Ox 98.4 F 78 20 112/67 98 02/06/17 08:48 02/06/17 10:00 02/06/17 08:48 02/06/17 08:48 02/06/17 08:48 Intake and Output: 02/06/17 02/06/17 06:59 18:59 Intake Total 0 Balance 0 - Medications Medications: Current Medications Aspirin (Ecotrin) 81 mg PO DAILY [facility] Last Admin: 02/06/17 10:25 Dose: 81 mg Atorvastatin Calcium (Lipitor) 40 mg PO DIN [facility] Folic Acid (Folic Acid) 1 mg PO DAILY [facility] Last Admin: 02/06/17 10:25 Dose: 1 mg Hydroxychloroquine Sulfate (Plaquenil) 200 mg PO BID [facility] Last Admin: 02/06/17 10:25 Dose: 200 mg Methotrexate (Methotrexate) 3 mg PO QWK [facility] - Labs Labs: 02/06/17 05:30 02/06/17 05:30 PT 12.0 SECONDS (9.4-12.5) 02/05/17 20:06 INR 1.10 (0.93-1.08) H 02/05/17 20:06 APTT 33.0 Seconds (25.1-36.5) 02/05/17 20:06 - Head Exam Head Exam: ATRAUMATIC, NORMAL INSPECTION, NORMOCEPHALIC - Eye Exam Eye Exam: EOMI, PERRL. absent: Periorbital tenderness Pupil Exam: NORMAL ACCOMODATION, PERRL. absent: Irregular, Unequal Additional comments: Left eye ptosis - ENT Exam ENT Exam: Mucous Membranes Moist, Normal Exam, Normal Oropharynx - Neck Exam Neck Exam: Normal Inspection. absent: Lymphadenopathy, Thyromegaly - Respiratory Exam Respiratory Exam: Clear to Ausculation Bilateral, NORMAL BREATHING PATTERN. absent: Chest Wall Tenderness, Prolonged Expiratory Phase, Respiratory Distress - Cardiovascular Exam Cardiovascular Exam: REGULAR RHYTHM, RRR, +S1, +S2. absent: Gallop, Rubs - GI/Abdominal Exam GI & Abdominal Exam: Soft, Normal Bowel Sounds. absent: Rigid, Hyperactive Bowel Sounds - Extremities Exam Extremities Exam: Normal Inspection. absent: Joint Swelling, Pedal Edema, Tenderness - Back Exam Back Exam: NORMAL INSPECTION. absent: CVA tenderness (L), CVA tenderness (R), paraspinal tenderness - Neurological Exam Neurological Exam: Alert, Awake, CN II-XII Intact, Normal Gait, Oriented x3 - Psychiatric Exam Psychiatric exam: Normal Affect, Normal Mood - Skin Skin Exam: Dry, Intact, Normal Color Assessment and Plan - Assessment and Plan (Free Text) Assessment: 41 year old female with a past medical history of Hypothryodism, SLE, and R.A. who was admitted for acute ptosis of left eye. Plan: 1. Acute ptosis of left eye (M.G. vs. CVA vs. CN Palsy vs. TIA vs. Hypothryoidism) -NIHSS Score: 1. Physical exam was only pertinent for left eyelid drooping. Motor strength intact bilaterally. -Physical exam today showed an improvement in ptosis of the left eye. -MRI head findings: no restricted diffusion within the brain to suggest acute ischemic change, few tiny foci of high FLAIR signal intentsityin within the cerebral white matter. White matter disease is nonspecific. Intraparotid lymph node or nodule within the right parotid gland measuring .8x .6 cm. -MRA head w/o contrast: dominant left vertebral artery, right vertebral artery is small in caliber on raw data, flow within the right vertebral artery is poorly visualized, suggestive of occlusion, correlate with MRA of neck with/ without contrast. -MRA of neck showed a hypoplastic right vertebral artery with no demonstrated flow and no evidence of carotid stenosis. -Aspirin and Lipitor discontinued. -Neurology consulted. Rec's appreciated. 2. Acute leg swelling -Duplex U/s negative for DVT. 3. h/o of SLE -continue home meds. 4. h/o of Rheumatoid arthritis -continue home meds 5.h/o of Hypothyroidism -continue home meds DVT ppx - Heparin 5000 SC Q12. <Peter Campos B - Last Filed: 02/06/17 18:42> Objective - Vital Signs/Intake and Output Vital Signs (last 24 hours): Temp Pulse Resp BP Pulse Ox 98.4 F 75 20 112/67 98 02/06/17 08:48 02/06/17 18:00 02/06/17 08:48 02/06/17 08:48 02/06/17 08:48 Intake and Output: 02/06/17 02/06/17 06:59 18:59 Intake Total 0 Balance 0 - Medications Medications: Current Medications Aspirin (Ecotrin) 81 mg PO DAILY [facility] Last Admin: 02/06/17 10:25 Dose: 81 mg Atorvastatin Calcium (Lipitor) 40 mg PO DIN [facility] Last Admin: 02/06/17 17:21 Dose: 40 mg Folic Acid (Folic Acid) 1 mg PO DAILY [facility] Last Admin: 02/06/17 10:25 Dose: 1 mg Hydroxychloroquine Sulfate (Plaquenil) 200 mg PO BID [facility] Last Admin: 02/06/17 17:22 Dose: 200 mg Methotrexate (Methotrexate) 3 mg PO QWK [facility] - Labs Labs: 02/06/17 05:30 02/06/17 05:30 PT 12.0 SECONDS (9.4-12.5) 02/05/17 20:06 INR 1.10 (0.93-1.08) H 02/05/17 20:06 APTT 33.0 Seconds (25.1-36.5) 02/05/17 20:06 Attending/Attestation - Attestation I have personally seen and examined this patient.: Yes I have fully participated in the care of the patient.: Yes I have reviewed all pertinent clinical information, including history, physical exam and plan: Yes Notes (Text): I have seen and examined the patient at bedside. Agree with the above note with the following additions/ exceptions: Briefly this is 41 year old female with history of SLE, Rheumatoid arthritis, hypothyroidism who comes for evaluation of acute onset of ptosis x 2 days. Degree of ptosis does not vary over the course of the day or with fatigue. No associated headache or diplopia. No history of ocular surgery, trauma and does not wear contact lens. There is no FH of ptosis. Pupils are equal round and reactive. Today she denies any complaints. Ptosis has significantly improved. MRI and MRA reviewed. 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 Awaiting neurologist recommendation. Duplex LE negative. Patient was recently diagnosed with hypothyroidism and was started on synthroid. Endo consult was initially called however patient refused as she has seen percussion instrument tuner as an outpatient. Upon discharge patient will follow up with Dr Joseph. Dr Peetr Campos
[2017-02-07 09:46] VITALS: BP 106/68; TEMP 97.8; O2SAT 100
[2017-02-07 10:31] VITALS: PULSE 80
--- NOTE | 2017-02-07 12:01 | CP.PCM.DIS ---
<Martín Smith - Last Filed: 02/07/17 16:16> Provider - Provider Date of Admission: 02/05/17 16:51 Attending physician: Aliza Ramos MD Time Spent in preparation of Discharge (in minutes): 45 Hospital Course - Lab Results Lab Results: Most Recent Lab Values WBC 2.8 10^3/ul (4.5-11.0) L* D 02/06/17 05:30 RBC 3.49 10^6/uL (3.5-6.1) L 02/06/17 05:30 Hgb 9.9 g/dL (12.0-16.0) L 02/06/17 05:30 Hct 31.1 % (36.0-48.0) L 02/06/17 05:30 MCV 89.1 fl (80.0-105.0) 02/06/17 05:30 MCH 28.4 pg (25.0-35.0) 02/06/17 05:30 MCHC 31.8 g/dl (31.0-37.0) 02/06/17 05:30 RDW 14.2 % (11.5-14.5) 02/06/17 05:30 Plt Count 325 10^3/uL (120.0-450.0) 02/06/17 05:30 MPV 10.0 fl (7.0-11.0) 02/06/17 05:30 Gran % 53.9 % (50.0-68.0) 02/06/17 05:30 Lymph % (Auto) 32.4 % (22.0-35.0) 02/06/17 05:30 Vilas % (Auto) 10.5 % (1.0-6.0) H 02/06/17 05:30 Eos % (Auto) 2.5 % (1.5-5.0) 02/06/17 05:30 Baso % (Auto) 0.7 % (0.0-3.0) 02/06/17 05:30 Gran # 1.48 (1.4-6.5) 02/06/17 05:30 Lymph # 0.9 (1.2-3.4) L 02/06/17 05:30 Vilas # 0.3 (0.1-0.6) 02/06/17 05:30 Eos # 0.1 (0.0-0.7) 02/06/17 05:30 Baso # 0.02 K/mm3 (0.0-2.0) 02/06/17 05:30 ESR 120 mm/hr (0.0-20.0) H 02/05/17 20:06 PT 12.0 SECONDS (9.4-12.5) 02/05/17 20:06 INR 1.10 (0.93-1.08) H 02/05/17 20:06 APTT 33.0 Seconds (25.1-36.5) 02/05/17 20:06 Sodium 143 mmol/L (132-148) 02/06/17 05:30 Potassium 4.0 mmol/L (3.6-5.0) 02/06/17 05:30 Chloride 107 mmol/L (98-107) 02/06/17 05:30 Carbon Dioxide 22 mmol/L (21-33) 02/06/17 05:30 Anion Gap 18 (10-20) 02/06/17 05:30 BUN 8 mg/dL (7-21) 02/06/17 05:30 Creatinine 0.7 mg/dl (0.7-1.2) 02/06/17 05:30 Est GFR ( Amer) > 60 02/06/17 05:30 Est GFR (Non-Af Amer) > 60 02/06/17 05:30 Random Glucose 96 mg/dL (70-110) 02/06/17 05:30 Calcium 9.1 mg/dL (8.4-10.5) 02/06/17 05:30 Total Bilirubin 0.4 mg/dL (0.2-1.3) 02/06/17 05:30 AST 44 U/L (14-36) H D 02/06/17 05:30 ALT 18 U/L (7-56) 02/06/17 05:30 Alkaline Phosphatase 66 U/L (38-126) 02/06/17 05:30 C-React Prot High Sens > 15.00 mg/L (1.00-3.00) H 02/05/17 20:06 Total Protein 8.9 g/dL (5.8-8.3) H 02/06/17 05:30 Albumin 3.9 g/dL (3.0-4.8) 02/06/17 05:30 Globulin 5.0 gm/dL 02/06/17 05:30 Albumin/Globulin Ratio 0.8 (1.1-1.8) L 02/06/17 05:30 Triglycerides 134 mg/dL (35-160) 02/05/17 16:00 Cholesterol 124 mg/dL (130-200) L 02/05/17 16:00 LDL Cholesterol Direct 62 mg/dL (0-129) 02/05/17 16:00 HDL Cholesterol 29 mg/dL (29-60) 02/05/17 16:00 Thyroxine (T4) 5.2 ug/dL (5.5-11.0) L 02/06/17 08:00 Total T3 1.29 ng/mL (0.97-1.69) 02/06/17 08:00 TSH 3rd Generation 36.90 mIU/mL (0.46-4.68) H 02/05/17 20:06 Urine Color Yellow (YELLOW) 02/05/17 18:02 Urine Appearance Clear (CLEAR) 02/05/17 18:02 Urine pH 8.5 (4.7-8.0) 02/05/17 18:02 Ur Specific [place] 1.015 (1.005-1.035) 02/05/17 18:02 Urine Protein Negative mg/dL (<30 mg/dL) 02/05/17 18:02 Urine Glucose (UA) Negative mg/dL (NEGATIVE) 02/05/17 18:02 Urine Ketones Negative mg/dL (NEGATIVE) 02/05/17 18:02 Urine Blood Negative (NEGATIVE) 02/05/17 18:02 Urine Nitrate Negative (NEGATIVE) 02/05/17 18:02 Urine Bilirubin Negative (NEGATIVE) 02/05/17 18:02 Urine Urobilinogen 0.2 E.U./dL (<1 E.U./dL) 02/05/17 18:02 Ur Leukocyte Esterase Negative Micheal/uL (NEGATIVE) 02/05/17 18:02 Urine HCG, Qual Negative (NEGATIVE) 02/05/17 16:03 - Hospital Course Hospital Course: 41 year old female with a past medical history of SLE, Rheumatoid arthritis, hypothyroidism who comes in complaining of left eyelid drooping and bilateral leg swelling for the past two days. The patient denies any inciting events leading up to the symptoms. The patient denies alleviating or modifying factors. The patient denies any headaches, double vision, chest pain, shortness of breath, lightheadedness, dizziness, changes in vision, syncopal episodes, sick contacts, recent travel, recent ocular surgery, or any other complaints. The patient was admitted for further management. Specialist: Neurology While admitted the patient had and MRI head that showed no restricted diffusion within the brain to suggest acute ischemic change, few tiny foci of high FLAIR signal intentsityin within the cerebral white matter. White matter disease is nonspecific. Intraparotid lymph node or nodule within the right parotid gland measuring .8x .6 cm. The patient also had an MRA head w/o contrast that showed dominant left vertebral artery, right vertebral artery is small in caliber on raw data, flow within the right vertebral artery is poorly visualized, suggestive of occlusion , correlate with MRA of neck with/ without contrast. 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 The patient was seen by Neurology who recommended that stroke versus tia was ruled out, continue methotrexate and Plaquenil, and to follow up with as an outpatient basis. The patient was seen this morning and determined to be medically stable. The patient was given a one month supply of synthroid upon discharge. The patient was discharged home with instructions to follow up with PMD, Feed Mixer, and Community Resource Officer within one week of discharge. Discharge Exam - Head Exam Head Exam: ATRAUMATIC, NORMAL INSPECTION, NORMOCEPHALIC - Eye Exam Eye Exam: EOMI, Normal appearance, PERRL. absent: Periorbital tenderness Pupil Exam: NORMAL ACCOMODATION, PERRL. absent: Irregular, Unequal - ENT Exam ENT Exam: Mucous Membranes Moist, Normal Oropharynx - Respiratory Exam Respiratory Exam: Clear to PA & Lateral, NORMAL BREATHING PATTERN, UNREMARKABLE. absent: Prolonged Expiratory Phase, Respiratory Distress - Cardiovascular Exam Cardiovascular Exam: REGULAR RHYTHM, +S1, +S2 - GI/Abdominal Exam GI & Abdominal Exam: Normal Bowel Sounds, Unremarkable. absent: Distended, Hypoactive Bowel Sounds, Organomegaly - Extremities Exam Extremities exam: full ROM - Back Exam Back exam: NORMAL INSPECTION. absent: CVA tenderness (L), CVA tenderness (R), paraspinal tenderness - Neurological Exam Neurological exam: Alert, CN II-XII Intact, Oriented x3 - Psychiatric Exam Psychiatric exam: Normal Affect, Normal Mood - Skin Skin Exam: Dry, Intact, Normal Color, Warm Discharge Plan - Discharge Medications Prescriptions: Levothyroxine [Synthroid] 100 mcg PO DAILY #30 tab - Follow Up Plan Condition: GOOD Disposition: HOME/ ROUTINE Instructions: Ptosis (GEN) Additional Instructions: 1. Follow up with PMD of choice in 1 week. 2. Follow up with Rheumatology Dr. Joni Chambers in [place]. 3. Continue synthroid. Follow up TSH in 4 to 6 weeks. <Aliza Ramos - Last Filed: 02/07/17 17:55> Provider - Provider Date of Admission: 02/05/17 16:51 Attending physician: Aliza Ramos MD Hospital Course - Lab Results Lab Results: Most Recent Lab Values WBC 2.8 10^3/ul (4.5-11.0) L* D 02/06/17 05:30 RBC 3.49 10^6/uL (3.5-6.1) L 02/06/17 05:30 Hgb 9.9 g/dL (12.0-16.0) L 02/06/17 05:30 Hct 31.1 % (36.0-48.0) L 02/06/17 05:30 MCV 89.1 fl (80.0-105.0) 02/06/17 05:30 MCH 28.4 pg (25.0-35.0) 02/06/17 05:30 MCHC 31.8 g/dl (31.0-37.0) 02/06/17 05:30 RDW 14.2 % (11.5-14.5) 02/06/17 05:30 Plt Count 325 10^3/uL (120.0-450.0) 02/06/17 05:30 MPV 10.0 fl (7.0-11.0) 02/06/17 05:30 Gran % 53.9 % (50.0-68.0) 02/06/17 05:30 Lymph % (Auto) 32.4 % (22.0-35.0) 02/06/17 05:30 Vilas % (Auto) 10.5 % (1.0-6.0) H 02/06/17 05:30 Eos % (Auto) 2.5 % (1.5-5.0) 02/06/17 05:30 Baso % (Auto) 0.7 % (0.0-3.0) 02/06/17 05:30 Gran # 1.48 (1.4-6.5) 02/06/17 05:30 Lymph # 0.9 (1.2-3.4) L 02/06/17 05:30 Vilas # 0.3 (0.1-0.6) 02/06/17 05:30 Eos # 0.1 (0.0-0.7) 02/06/17 05:30 Baso # 0.02 K/mm3 (0.0-2.0) 02/06/17 05:30 ESR 120 mm/hr (0.0-20.0) H 02/05/17 20:06 PT 12.0 SECONDS (9.4-12.5) 02/05/17 20:06 INR 1.10 (0.93-1.08) H 02/05/17 20:06 APTT 33.0 Seconds (25.1-36.5) 02/05/17 20:06 Sodium 143 mmol/L (132-148) 02/06/17 05:30 Potassium 4.0 mmol/L (3.6-5.0) 02/06/17 05:30 Chloride 107 mmol/L (98-107) 02/06/17 05:30 Carbon Dioxide 22 mmol/L (21-33) 02/06/17 05:30 Anion Gap 18 (10-20) 02/06/17 05:30 BUN 8 mg/dL (7-21) 02/06/17 05:30 Creatinine 0.7 mg/dl (0.7-1.2) 02/06/17 05:30 Est GFR ( Amer) > 60 02/06/17 05:30 Est GFR (Non-Af Amer) > 60 02/06/17 05:30 Random Glucose 96 mg/dL (70-110) 02/06/17 05:30 Calcium 9.1 mg/dL (8.4-10.5) 02/06/17 05:30 Total Bilirubin 0.4 mg/dL (0.2-1.3) 02/06/17 05:30 AST 44 U/L (14-36) H D 02/06/17 05:30 ALT 18 U/L (7-56) 02/06/17 05:30 Alkaline Phosphatase 66 U/L (38-126) 02/06/17 05:30 C-React Prot High Sens > 15.00 mg/L (1.00-3.00) H 02/05/17 20:06 Total Protein 8.9 g/dL (5.8-8.3) H 02/06/17 05:30 Albumin 3.9 g/dL (3.0-4.8) 02/06/17 05:30 Globulin 5.0 gm/dL 02/06/17 05:30 Albumin/Globulin Ratio 0.8 (1.1-1.8) L 02/06/17 05:30 Triglycerides 134 mg/dL (35-160) 02/05/17 16:00 Cholesterol 124 mg/dL (130-200) L 02/05/17 16:00 LDL Cholesterol Direct 62 mg/dL (0-129) 02/05/17 16:00 HDL Cholesterol 29 mg/dL (29-60) 02/05/17 16:00 Thyroxine (T4) 5.2 ug/dL (5.5-11.0) L 02/06/17 08:00 Total T3 1.29 ng/mL (0.97-1.69) 02/06/17 08:00 TSH 3rd Generation 36.90 mIU/mL (0.46-4.68) H 02/05/17 20:06 Urine Color Yellow (YELLOW) 02/05/17 18:02 Urine Appearance Clear (CLEAR) 02/05/17 18:02 Urine pH 8.5 (4.7-8.0) 02/05/17 18:02 Ur Specific [place] 1.015 (1.005-1.035) 02/05/17 18:02 Urine Protein Negative mg/dL (<30 mg/dL) 02/05/17 18:02 Urine Glucose (UA) Negative mg/dL (NEGATIVE) 02/05/17 18:02 Urine Ketones Negative mg/dL (NEGATIVE) 02/05/17 18:02 Urine Blood Negative (NEGATIVE) 02/05/17 18:02 Urine Nitrate Negative (NEGATIVE) 02/05/17 18:02 Urine Bilirubin Negative (NEGATIVE) 02/05/17 18:02 Urine Urobilinogen 0.2 E.U./dL (<1 E.U./dL) 02/05/17 18:02 Ur Leukocyte Esterase Negative Micheal/uL (NEGATIVE) 02/05/17 18:02 Urine HCG, Qual Negative (NEGATIVE) 02/05/17 16:03 Attending/Attestation - Attestation I have personally seen and examined this patient.: Yes I have fully participated in the care of the patient.: Yes I have reviewed all pertinent clinical information, including history, physical exam and plan: Yes Notes (Text): 02/07/17 17:49 attending note; Patient seen and examined with resident. patient is a 41 year old female with history of SLE, Rheumatoid arthritis, hypothyroidism who comes for evaluation of acute onset of ptosis x 2 days. Degree of ptosis does not vary over the course of the day or with fatigue. No associated headache or diplopia. No history of ocular surgery, trauma and does not wear contact lens. There is no FH of ptosis. Pupils are equal round and reactive. Ptosis completely resolved Since yesterday. Neurology evaluation appreciated. MRI and MRA reviewed. 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 Duplex LE negative. Patient was recently diagnosed with hypothyroidism and was started on synthroid. prescription for Synthroid given. patient is strongly advised to follow-up with endocrinology and check TSH in 4- 6 weeks. elevated ESR and CRP. Patient is currently on methotrexate and plaquenil. advised to follow-up with livestock feeder Dr.Dominic Chambers. Might need steroids. Upon discharge patient will follow up with Dr Joseph. Diagnosis; Ptosis Lupus hypothyroidism
[2017-02-09 21:14] LABS: AChR BLOCKING ANTIBODIES <15 % inhibit (<15)
[2017-02-10 21:55] LABS: ACETYLCHOLINE REC BIND AB <0.30 nmol/L (<=0.30)
== END 2017-02-07 10:32 | disposition home or self-care (01) | DRG 123 ==
LOC: ED 14:34 → ERH 16:51 → 3RNO 18:26
PROVIDERS: ADMIT Internal Medicine; ATTEND Internal Medicine
DX: H02.402 Unspecified ptosis of left eyelid (principal); M32.9 Systemic lupus erythematosus, unspecified; M06.9 Rheumatoid arthritis, unspecified; E03.9 Hypothyroidism, unspecified; Z80.3 Family history of malignant neoplasm of breast; Z82.49 Family history of ischemic heart disease and other diseases of the circulatory system; Z83.3 Family history of diabetes mellitus; R40.2412 Glasgow coma scale score 13-15, at arrival to emergency department

== ENCOUNTER 2017-05-20 16:41 | Emergency (ER) | payer BC, OTHER ==
[2017-05-20 16:41] VITALS: BMI 26.6
[2017-05-20 16:58] VITALS: TEMP 98.7
--- NOTE | 2017-05-20 18:15 | PCM.SURG1 ---
Surgeon's Initial Post Op Note - Surgeon's Notes Surgeon: Dr. Gillespie Registered Safety Engineer: PGY1 Type of Anesthesia: Local
[2017-05-20 19:18] VITALS: BP 129/90; PULSE 79; RESP 19; O2SAT 99
--- NOTE | 2017-05-20 20:55 | ED PDOC ---
Arrival/HPI - General Chief Complaint: Abnormal Skin Integrity Time Seen by Provider: 05/20/17 18:38 Historian: Patient - History of Present Illness Narrative History of Present Illness (Text): 05/20/17 20:51 A 42 year old female presents to the emergency department complaining of pain to 3rd and 4th fingers of right hand. Patient reports she recently had a manicure done a few days ago. She denies any recent trauma or numbness. Patient also complains of hemorrhoids for 2 days. Patient denies any fever, chills, nausea, vomiting, abdominal pain, chest pain, shortness of breath or any other complaints. Time/Duration: Other Symptom Course: Unchanged Quality: Other Context: Home Past Medical History - Provider Review Nursing Documentation Reviewed: Yes - Infectious Disease Hx of Infectious Diseases: None - Cardiac Hx Cardiac Disorders: No - Pulmonary Hx Respiratory Disorders: No - Neurological Hx Neurological Disorder: No - HEENT Hx HEENT Disorder: No - Renal Hx Renal Disorder: No - Endocrine/Metabolic Hx Endocrine Disorders: Yes Hx Hyperthyroidism: Yes Hx Systemic Lupus Erythematosus: Yes - Hematological/Oncological Hx Blood Disorders: No - Integumentary Hx Dermatological Disorder: No - Musculoskeletal/Rheumatological Hx Musculoskeletal Disorders: Yes Hx Arthritis: Yes Hx Rheumatoid Arthritis: Yes Other/Comment: LUPUS - Gastrointestinal Hx Gastrointestinal Disorders: No - Genitourinary/Gynecological Hx Genitourinary Disorders: No - Psychiatric Hx Psychophysiologic Disorder: No Hx Substance Use: No - Past Surgical History Past Surgical History: No Previous - Anesthesia Hx Anesthesia: No Hx Anesthesia Reactions: No - Suicidal Assessment Feels Threatened In Home Enviroment: No Family/Social History - Physician Review Nursing Documentation Reviewed: Yes Family/Social History: No Known Family HX Smoking Status: Never Smoked Hx Alcohol Use: No Hx Substance Use: No Allergies/Home Meds Allergies/Adverse Reactions: Allergies No Known Allergies Allergy (Verified 05/20/17 16:44) Home Medications: Home Meds Medication Instructions Recorded Confirmed Hydroxychloroquine Sulfate 200 mg PO BID 07/02/16 05/20/17 [Plaquenil] Methotrexate 3 mg PO QWK 02/05/17 05/20/17 Review of Systems - Physician Review All systems were reviewed & negative as marked: Yes - Review of Systems Constitutional: absent: Fevers, Night Sweats Respiratory: absent: SOB Cardiovascular: absent: Chest Pain Gastrointestinal: Other (hemorrhoids). absent: Abdominal Pain, Nausea, Vomiting Musculoskeletal: Other (pain to 3rd and 4th finger of right hand) Physical Exam Vital Signs Reviewed: Yes Vital Signs Temp Pulse Resp BP Pulse Ox 05/20/17 19:18 19 99 05/20/17 19:17 98.7 F 79 19 129/90 99 05/20/17 16:45 98.7 F 80 16 124/82 97 Temperature: Afebrile Blood Pressure: Normal Pulse: Regular Respiratory Rate: Normal Appearance: Positive for: Well-Appearing, Non-Toxic, Comfortable Pain Distress: None Mental Status: Positive for: Alert and Oriented X 3 Medical Decision Making ED Course and Treatment: 05/20/17 20:51 Impression: A 42 year old female with pain to 3rd and 4th finger of right hand. Patient also notes hemorrhoids. Differential Diagnosis included but are not limited to: Paroncychia, Hemorrhoids Plan: -- Incision and drainage procedure -- Reassess and disposition Progress Notes: Procedure: Incision & Drainage Performed by the emergency provider Indication: Paroncychia Location: 3rd finger of right hand Preparation: The area was prepped and draped in the usual sterile fashion and was cleansed. Digital block of Lidocaine 2% was used for anesthesia. Procedure: The most fluctuant portion of the paroncychia was incised with a #11 scalpel. Post-Procedure: On exam the abscess is notably less fluctuant. The patient tolerated the procedure well, and there were no complications. I have discussed the plan with the patient, who expresses understanding. Patient in agreement with plan to be discharged home. Patient is stable for discharge. Patient was instructed to follow up with physician or return if symptoms worsen or new concerning symptoms arise. - Scribe Statement The provider has reviewed the documentation as recorded by the Fausto Raines Provider Scribe Attestation: All medical record entries made by the Scribpanda were at my direction and personally dictated by me. I have reviewed the chart and agree that the record accurately reflects my personal performance of the history, physical exam, medical decision making, and the department course for this patient. I have also personally directed, reviewed, and agree with the discharge instructions and disposition. Disposition/Present on Arrival - Present on Arrival Any Indicators Present on Arrival: No History of DVT/PE: No History of Uncontrolled Diabetes: No Urinary Catheter: No History of Decub. Ulcer: No History Surgical Site Infection Following: None - Disposition Have Diagnosis and Disposition been Completed?: Yes Diagnosis: Paronychia, Hemorrhoids Disposition: HOME/ ROUTINE Disposition Time: 18:00 Condition: IMPROVED Discharge Instructions (ExitCare): Hemorrhoids (DC), Paronychia (DC), How to Do a Sitz Bath Additional Instructions: Thank you for letting us take care of you today. The emergency medical care you received today was directed at your acute symptoms. If you were prescribed any medication, please fill it and take as directed. It may take several days for your symptoms to resolve. Return to the Emergency Department if your symptoms worsen, do not improve, or if you have any other problems. Please contact your doctor or call one of the physicians/clinics you have been referred to that are listed on the Patient Visit Information form that is included in your discharge packet. Bring any paperwork you were given at discharge with you along with any medications you are taking to your follow up visit. Our treatment cannot replace ongoing medical care by a primary care provider (PCP) outside of the emergency department. Thank you for allowing the [facility] team to be part of your care today. Follow up with your primary doctor in 2-3 days for re-evaluation and further management. Prescriptions: Cephalexin [cephalexin] 500 mg PO Q8 #15 cap Docusate Sodium [Colace] 100 mg PO Q8 PRN #20 capsule PRN Reason: Constipation Ibuprofen [Motrin] 600 mg PO Q6 PRN #20 tab PRN Reason: Pain, Moderate (4-7) Lidocaine 2% Gel [Xylocaine 2% (Uro-Jet)] 1 appl TP BID #3 gel [facility], [Primary Care Provider] - Follow up with primary Forms: [email or web address] (B[place]raini)
== END 2017-05-20 19:18 | disposition home or self-care (01) ==
LOC: ED 16:41
DX: L03.011 Cellulitis of right finger (principal); K64.9 Unspecified hemorrhoids

== ENCOUNTER 2017-08-26 21:09 | Emergency (ER) | payer BC ==
[2017-08-26 21:25] VITALS: PULSE 79; RESP 18; O2SAT 100; BMI 29.7
--- NOTE | 2017-08-26 21:49 | ED PDOC ---
Arrival/HPI - General Chief Complaint: Abnormal Skin Integrity Time Seen by Provider: 08/26/17 21:44 Historian: Patient - History of Present Illness Narrative History of Present Illness (Text): 08/26/17 21:47 Edie Marshall is a 42 year old female, whose past medical history includes lupus, rheumatoid arthritis, and hypothyroidism, who presents to the emergency department complaining of a small raised area of erythema to the right upper arm for the past 2 days. Patient reports some discomfort and itching to the area. Patient denies any worsening redness, purulent discharge, fever, chills, or any other complaints. Time/Duration: < week (2 days) Symptom Onset: Gradual Symptom Course: Unchanged Activities at Onset: Light Context: Home Past Medical History - Provider Review Nursing Documentation Reviewed: Yes - Infectious Disease Hx of Infectious Diseases: None - Cardiac Hx Cardiac Disorders: No - Pulmonary Hx Respiratory Disorders: No - Neurological Hx Neurological Disorder: No - HEENT Hx HEENT Disorder: No - Renal Hx Renal Disorder: No - Endocrine/Metabolic Hx Endocrine Disorders: Yes Hx Hyperthyroidism: Yes Hx Systemic Lupus Erythematosus: Yes - Hematological/Oncological Hx Blood Disorders: No - Integumentary Hx Dermatological Disorder: No - Musculoskeletal/Rheumatological Hx Musculoskeletal Disorders: Yes (rheumatoid arthritis, chronic joint pain) - Gastrointestinal Hx Gastrointestinal Disorders: No - Genitourinary/Gynecological Hx Genitourinary Disorders: No - Psychiatric Hx Psychophysiologic Disorder: No Hx Substance Use: No - Past Surgical History Past Surgical History: No Previous - Anesthesia Hx Anesthesia: No Hx Anesthesia Reactions: No - Suicidal Assessment Feels Threatened In Home Enviroment: No Family/Social History - Physician Review Nursing Documentation Reviewed: Yes Family/Social History: Unknown Family HX Smoking Status: Never Smoked Hx Alcohol Use: No Hx Substance Use: No Allergies/Home Meds Allergies/Adverse Reactions: Allergies No Known Allergies Allergy (Verified 08/26/17 21:24) Home Medications: Home Meds Medication Instructions Recorded Confirmed Hydroxychloroquine Sulfate 200 mg PO BID 07/02/16 08/26/17 [Plaquenil] Methotrexate 3 mg PO QWK 02/05/17 08/26/17 Review of Systems - Physician Review All systems were reviewed & negative as marked: Yes - Review of Systems Constitutional: Normal. absent: Fevers Eyes: Normal ENT: Normal Respiratory: Normal. absent: SOB, Cough Cardiovascular: Normal. absent: Chest Pain Gastrointestinal: Normal. absent: Abdominal Pain, Diarrhea, Nausea, Vomiting Genitourinary Female: Normal. absent: Dysuria, Frequency, Hematuria, Urine Output Changes Musculoskeletal: Normal. absent: Back Pain, Neck Pain Skin: Other (+right upper arm small, raised area of erythema). absent: Rash Neurological: Normal. absent: Dizziness Endocrine: Normal Hemo/Lymphatic: Normal Psychiatric: Normal Physical Exam Vital Signs Reviewed: Yes Vital Signs Temp Pulse Resp BP Pulse Ox 08/26/17 21:24 98 F 79 18 124/60 100 Temperature: Afebrile Blood Pressure: Normal Pulse: Regular Respiratory Rate: Normal Appearance: Positive for: Well-Appearing, Non-Toxic, Comfortable Pain Distress: None Mental Status: Positive for: Alert and Oriented X 3 - Systems Exam Head: Present: Atraumatic, Normocephalic Pupils: Present: PERRL Extroacular Muscles: Present: EOMI Conjunctiva: Present: Normal Mouth: Present: Moist Mucous Membranes Neck: Present: Normal Range of Motion. No: Meningeal Signs, MIDLINE TENDERNESS , Paraspinal Tenderness Upper Extremity: Present: Normal ROM, NORMAL PULSES, Erythema (Slightly raised area of erythema to right upper arm, non-fluctuant, minimally tender. No streaking, no axillary adenopathy noted.), Neurovascularly Intact, Capillary Refill < 2s. No: Cyanosis, Edema Lower Extremity: Present: Normal Inspection. No: Edema Neurological: Present: GCS=15, CN II-XII Intact, Speech Normal Skin: Present: Warm, Dry, Normal Color. No: Rashes Lymphatic: No: Axillary Adenopathy Psychiatric: Present: Alert, Oriented x 3, Normal Insight, Normal Concentration Medical Decision Making ED Course and Treatment: 08/26/17 21:47 Impression: 42 year old female complaining of small, raised area of erythema to right upper arm. Plan: -- Keflex -- Reassess and disposition Progress Notes: - Medication Orders Current Medication Orders: Discontinued Medications Cephalexin Monohydrate (Keflex) 500 mg PO ONCE STA PRN Reason: Protocol Stop: 08/26/17 21:56 Last Admin: 08/26/17 22:17 Dose: 500 mg Diphenhydramine HCl (Benadryl) 50 mg PO STAT STA Stop: 08/26/17 22:02 Last Admin: 08/26/17 22:17 Dose: 50 mg - Scribe Statement The provider has reviewed the documentation as recorded by the Fausto Nur Provider Jewelibe Attestation: All medical record entries made by the Jewelibpanda were at my direction and personally dictated by me. I have reviewed the chart and agree that the record accurately reflects my personal performance of the history, physical exam, medical decision making, and the department course for this patient. I have also personally directed, reviewed, and agree with the discharge instructions and disposition. Disposition/Present on Arrival - Present on Arrival Any Indicators Present on Arrival: No History of DVT/PE: No History of Uncontrolled Diabetes: No Urinary Catheter: No History of Decub. Ulcer: No History Surgical Site Infection Following: None - Disposition Have Diagnosis and Disposition been Completed?: Yes Diagnosis: Cellulitis, Allergic reaction Disposition: HOME/ ROUTINE Disposition Time: 23:19 Patient Plan: Discharge Condition: GOOD Discharge Instructions (ExitCare): Cellulitis (Skin Infection), Adult (DC) Additional Instructions: Warm compresses to the affected area/take meds as prescribed/if no improvement or any worsening symptoms return to the emergency room Prescriptions: DiphenhydrAMINE [Benadryl] 50 mg PO Q6 PRN #24 cap PRN Reason: Itching / Pruritus Cephalexin [cephalexin] 500 mg PO TID #21 cap Referrals: PCP,NO [Primary Care Provider] - Follow up with primary Forms: [employer] (American)
[2017-08-27 00:48] VITALS: BP 120/77; TEMP 98.2
== END 2017-08-26 23:31 | disposition home or self-care (01) ==
LOC: ED 21:09
DX: T78.40XA Allergy, unspecified, initial encounter (principal); X58.XXXA Exposure to other specified factors, initial encounter; L03.113 Cellulitis of right upper limb; M06.9 Rheumatoid arthritis, unspecified; E03.9 Hypothyroidism, unspecified; M32.9 Systemic lupus erythematosus, unspecified

== ENCOUNTER 2017-11-28 18:44 | Inpatient (IN) | payer BC ==
--- NOTE | 2017-11-28 18:50 | ED PDOC ---
Arrival/HPI - General Time Seen by Provider: 11/28/17 18:46 Historian: Patient - History of Present Illness Narrative History of Present Illness (Text): 11/28/17 18:49 42 y/o female, pmh including RA/Lupus/hypothyroidism, nkda, c/o back and generalized chest pain x 2 months with no fall or trauma. Pt. stated that she has mid back pain, associated with chest pain, on and off, lasting less than 1 minutes, non-exertional, non-smoker, no night sweat, no rash, no dizziness, no change in vision, no coughing, no palpitation, no tearing sensation, no other medical or psychological complaints. Pt. stated that she doesn't have any pain now. Past Medical History - Provider Review Nursing Documentation Reviewed: Yes - Infectious Disease Hx of Infectious Diseases: None - Cardiac Hx Cardiac Disorders: No - Pulmonary Hx Respiratory Disorders: No - Neurological Hx Neurological Disorder: No - HEENT Hx HEENT Disorder: No - Renal Hx Renal Disorder: No - Endocrine/Metabolic Hx Endocrine Disorders: Yes Hx Hyperthyroidism: Yes Hx Systemic Lupus Erythematosus: Yes - Hematological/Oncological Hx Blood Disorders: No - Integumentary Hx Dermatological Disorder: No - Musculoskeletal/Rheumatological Hx Musculoskeletal Disorders: Yes (rheumatoid arthritis, chronic joint pain) - Gastrointestinal Hx Gastrointestinal Disorders: No - Genitourinary/Gynecological Hx Genitourinary Disorders: No - Psychiatric Hx Psychophysiologic Disorder: No Hx Substance Use: No - Past Surgical History Past Surgical History: No Previous - Anesthesia Hx Anesthesia: No Hx Anesthesia Reactions: No - Suicidal Assessment Feels Threatened In Home Enviroment: No Family/Social History - Physician Review Nursing Documentation Reviewed: Yes Family/Social History: Unknown Family HX Smoking Status: Never Smoked Hx Alcohol Use: No Hx Substance Use: No Allergies/Home Meds Allergies/Adverse Reactions: Allergies No Known Allergies Allergy (Verified 11/28/17 18:46) Home Medications: Home Meds Medication Instructions Recorded Confirmed Hydroxychloroquine Sulfate 200 mg PO BID 07/02/16 11/28/17 [Plaquenil] Methotrexate 3 mg PO QWK 02/05/17 11/28/17 Review of Systems - Review of Systems Constitutional: absent: Fatigue, Fevers Eyes: absent: Vision Changes ENT: absent: Hearing Changes Respiratory: absent: SOB, Cough Cardiovascular: absent: Chest Pain Gastrointestinal: absent: Abdominal Pain, Nausea, Vomiting Musculoskeletal: absent: Arthralgias, Back Pain Skin: absent: Rash, Pruritis Neurological: absent: Headache, Dizziness Psychiatric: absent: Anxiety, Depression, Suicidal Ideation Physical Exam Vital Signs Reviewed: Yes Temperature: Afebrile Blood Pressure: Normal Pulse: Regular Respiratory Rate: Normal Appearance: Positive for: Well-Appearing, Non-Toxic, Comfortable Pain Distress: None Mental Status: Positive for: Alert and Oriented X 3 - Systems Exam Head: Present: Atraumatic, Normocephalic Pupils: Present: PERRL Extroacular Muscles: Present: EOMI Conjunctiva: Present: Normal Mouth: Present: Moist Mucous Membranes Nose (External): Present: Atraumatic. No: Abrasion, Contusion, Laceration, Lesions Nose (Internal): Present: Normal Inspection, No Active Bleeding. No: Rhinorrhea, Septal Hematoma, Epistaxis Neck: Present: Normal Range of Motion, Trachea Midline. No: Meningeal Signs, MIDLINE TENDERNESS, Paraspinal Tenderness, Lymphadenopathy Respiratory/Chest: Present: Clear to Auscultation, Good Air Exchange, Rhonchi (rt. mid lobe). No: Respiratory Distress, Accessory Muscle Use, Wheezes, Decreased Breath Sounds, Rales, Retracting, Tachypneic, Tender to Palpation Cardiovascular: Present: Regular Rate and Rhythm, Normal S1, S2. No: Murmurs Abdomen: No: Tenderness, Distention, Peritoneal Signs, Rebound, Guarding Back: Present: Normal Inspection. No: CVA Tenderness, Midline Tenderness, P araspinal Tenderness, Pain with Leg Raise, Decubitus Ulcer Upper Extremity: Present: Normal Inspection, Normal ROM, NORMAL PULSES. No: Cyanosis, Edema, Tenderness, Swelling Lower Extremity: Present: Normal Inspection, NORMAL PULSES, Normal ROM, Capillary Refill < 2 s. No: Edema, Tenderness, Swelling, Deformity Neurological: Present: GCS=15, CN II-XII Intact, Speech Normal, Motor Func Grossly Intact, Gait Normal, Memory Normal Skin: Present: Warm, Dry, Normal Color. No: Rashes Psychiatric: Present: Alert, Oriented x 3, Normal Insight, Normal Concentration Medical Decision Making ED Course and Treatment: 11/28/17 19:12 -Labs -EKG -CXR -IVF -Observe and reassess 11/28/17 22:26 -Dimer 320, CTA ordered 11/29/17 00:28 -EKG: NSR @ 76 BPM, no ST elevation or depression, T wave inversion lead III -Chest xray show no active disease -CTA show Patchy infiltrate right upper lobe. No evidence of central or segmental pulmonary embolism is seen. Recommend follow-up until cleared. -Labs show no acute findings except chronic anemia hgb 9.9 from 9.9 -Dimer 320, CTA ordered -BNP is negative -Trop is negative -UA show no UTI -UDS show no acute findings. -IV rocephine and azithromycin ordered, blood culture ordered. -Pt. is on the methotrexate, immuno suppressant medication, chest pain (aspirin ordered and needs with pneumonia, will admit for IV antibiotics and possible Infectious disease consult -Paging Dr. Bonds for admission. 11/29/17 00:35 -I spoke to Dr. Bonds, discussed about the case/labs/radiology result and treatments, agreed to admit to his service and request inpatient admission. - Lab Interpretations I have reviewed the lab results: Yes - RAD Interpretation Narrative RAD Interpretations (Text): EXAM: CTA w/ Intravenous Contrast for PE Signed: 11/28/17 By: Xu Harris M.D. Findings: Pulmonary arteries: No evidence of central or segmental pulmonary embolism is seen. Aorta: There is no evidence for aneurysm or dissection of the thoracic aorta Lungs: There is a patchy infiltrate in the anterior segment of the right upper lobe. Pleural spaces: No pneumothorax evident. No pleural effusions Heart: Normal hear size. No significant pericardial effusion Lymph nodes: No Clinically significant lymphadenopathy is evident Bones: No focal osseous abnormality or acute fracture Upper abdomen: Images of the upper abdomen are unremarkable Impression: Patchy infiltrate right upper lobe. Recommend follow-up until cleared. Chest xray: no active disease Car Racer: Radiologist - EKG Interpretation EKG Interpretation (Text): 11/28/17 19:13 : NSR @ 76 BPM, no ST elevation or depression, T wave inversion lead III Interpreted by ED Physician: Yes Type: 12 lead EKG - PA / [employer] / Resident Statement MD/DO has reviewed & agrees with the documentation as recorded. Disposition/Present on Arrival - Present on Arrival Any Indicators Present on Arrival: No History of DVT/PE: No History of Uncontrolled Diabetes: No Urinary Catheter: No History of Decub. Ulcer: No History Surgical Site Infection Following: None - Disposition Have Diagnosis and Disposition been Completed?: Yes Diagnosis: Chest pain, Pneumonia Disposition: HOSPITALIZED Disposition Time: 00:30 Patient Plan: Admission, Observation, Telemetry Patient Problems: Current Active Problems Problem Status Onset Chest pain Acute Pneumonia Acute Condition: STABLE
[2017-11-28] MEDS ORDERED: Sodium Chloride 0.9% 1,000 ML IV STA (19:08)
[2017-11-28 20:47] LABS: BASO # 0.01 K/mm3 (0.0-2.0); BASO % 0.3 % (0.0-3.0); EOS # 0.1 (0.0-0.7); EOS % 2.6 % (1.5-5.0); GRAN # 2.65 (1.4-6.5); GRAN % 67.7 % (50.0-68.0); HEMOGLOBIN 9.9 g/dL (12.0-16.0); LYMPH # 0.8 (1.2-3.4); LYMPH % 21.5 % (22.0-35.0); MEAN CELL VOLUME 90.5 fl (80.0-105.0); MEAN CORPUSCULAR HEMOGLOBIN 29.5 pg (25.0-35.0); MEAN CORPUSCULAR HGB CONC 32.6 g/dl (31.0-37.0); MEAN PLATELET VOLUME 9.4 fl (7.0-11.0); MONO # 0.3 (0.1-0.6); MONO % 7.9 % (1.0-6.0); RBC 3.36 10^6/uL (3.5-6.1); RED CELL DISTRIBUTION WIDTH 13.2 % (11.5-14.5); WHITE BLOOD COUNT 3.9 10^3/ul (4.5-11.0)
[2017-11-28 20:51] LABS: URINE BILIRUBIN NEGATIVE (NEGATIVE); URINE BLOOD NEGATIVE (NEGATIVE); URINE GLUCOSE (UA) NEGATIVE (NEGATIVE); URINE LEUKOCYTE ESTERASE NEGATIVE Leu/uL (NEGATIVE); URINE PROTEIN NEGATIVE mg/dL (<30 mg/dL)
[2017-11-28 21:00] LABS: URINE APPEARANCE CLEAR (CLEAR); URINE COLOR YELLOW (YELLOW)
[2017-11-28 21:17] LABS: BARBITURATES, UR NEGATIVE (NEGATIVE); BENZODIAZEPINES, UR NEGATIVE (NEGATIVE); OPIATES, UR NEGATIVE (NEGATIVE); PHENCYCLIDINE, UR NEGATIVE (NEGATIVE)
[2017-11-28 22:15] LABS: ALB/GLOB RATIO 0.8 (1.1-1.8); ALBUMIN 3.9 g/dL (3.0-4.8); ALT/SGPT 16 U/L (7-56); AST/SGOT 36 U/L (14-36); BLOOD UREA NITROGEN 9 mg/dL (7-21); CALCIUM 8.8 mg/dL (8.4-10.5); GFR NON-AFRICAN AMERICAN > 60
[2017-11-28] MEDS ORDERED: Magnesium Sulfate 1 gm in D5W 1 GM/100 ML BAG IVPB ONE (22:16)
[2017-11-28 22:25] LABS: B-TYPE NATRIURETIC PEPTIDE 40.5 pg/mL (0-450); TROPONIN I < 0.01 ng/mL
[2017-11-28] MEDS ORDERED: Iohexol 350 MG/100 ML VIAL ONE (22:55)
[2017-11-29] MEDS ORDERED: cefTRIAXone 1 gm 1 GM/100 ML BAG IVPB STA (00:05)
[2017-11-29] MEDS ORDERED: Azithromycin 500MG/NS 250ml 500 MG/250 ML BAG IVPB STA ×2 (00:05→10:42)
[2017-11-29] MEDS ORDERED: Influenza Vaccine 60 mcg/0.5 mL SYR (4YR UP) IM ONE (04:23)
[2017-11-29] MEDS ORDERED: Pneumococcal 23-Valent Vaccine IM ONE (04:23)
--- NOTE | 2017-11-29 09:15 | CT ---
Date of service: 11/28/2017 PROCEDURE: CT Chest with contrast (Pulmonary Angiogram) HISTORY: elevated dimer, r/o pe COMPARISON: None available. TECHNIQUE: Axial computed tomography images were obtained of the chest in the pulmonary arterial phase of enhancement. Coronal and sagittal reformatted images were created and reviewed. Maximum intensity projection (MIP) reconstructed images in the following planes: Sagittal and coronal Intravenous contrast dose: 100 cc Omnipaque 350. Mean Hounsfield value in the main pulmonary artery: 253.25 Radiation dose: Total exam DLP = mGy-cm. This CT exam was performed using one or more of the following dose reduction techniques: Automated exposure control, adjustment of the mA and/or kV according to patient size, and/or use of iterative reconstruction technique. FINDINGS: PULMONARY ARTERIES: Unremarkable. No pulmonary embolism. AORTA: No acute findings. No thoracic aortic aneurysm. LUNGS: Patchy alveolar consolidative changes anterior segment right upper lobe. Findings are likely infectious/inflammatory. PLEURAL SPACES: Unremarkable. No effusion or pneumothorax. HEART: Unremarkable. No cardiomegaly. No significant pericardial effusion. LYMPH NODES: No lymphadenopathy. BONES, CHEST WALL: Unremarkable. No fracture or destructive lesion OTHER FINDINGS: Unremarkable. IMPRESSION: Unremarkable CT pulmonary angiogram. No pulmonary embolus. Right upper lobe infiltrate likely pneumonia. Concordant results (preliminary interpretation) provided by [email or web address]. Procedure Completed: 23:19 Preliminary Report: Dictated and Authenticated: 23:58 Final Interpretation: 09:13. November 29, 2017.
--- NOTE | 2017-11-29 10:10 | RAD ---
Date of service: 11/28/2017 HISTORY: medical clearance COMPARISON: 02/05/2017 FINDINGS: LUNGS: No active pulmonary disease. PLEURA: No significant pleural effusion identified, no pneumothorax apparent. CARDIOVASCULAR: Normal. OSSEOUS STRUCTURES: No significant abnormalities. VISUALIZED UPPER ABDOMEN: Normal. OTHER FINDINGS: None. IMPRESSION: No active disease. No significant interval change compared to the prior examination(s). Concordant results with the preliminary interpretation rendered by the emergency department physician procedure.
[2017-11-29] MEDS: cefTRIAXone 1 gm 1 GM/100 ML BAG IVPB SCH (11:27)
[2017-11-29] MEDS: Albuterol-Ipratrop 3 mg / 0.5 (3 ml) UD IH SCH ×2 (15:25→19:52)
--- NOTE | 2017-11-29 18:50 | CP.PCM.CON ---
History of Present Illness - History of Present Illness History of Present Illness: 42 year old female with PMH of SLE, Rheumatoid arthritis on Methotrexate, hypothyroidism came in to [facility] complaining of left sided chest pain which is on and off for the past 2 months which worsened over the past 3-4 days. She states that the pain is intermittent, lasting few minutes at a time, not associated with activity or food intake. She denies cough, no fever or chills, no headache or dizziness, no nausea or vomiting, no abdominal pain, no diarrhea, no dysuria. She denies hemoptysis, no night sweats, no weight loss, denies specific animal contacts, denies travel outside of [facility] in the past month. She denies uses monoclonal antibodies. CXR was negative for infiltrates but CT chest was done which is showing right upper lobe small few patchy infiltrates without air bronchograms. Infectious Diseases consult is requested to further evaluate and manage. Review of Systems - Review of Systems All systems: reviewed and no additional remarkable complaints except (as per HPI) Past Patient History - Infectious Disease Hx of Infectious Diseases: None - Past Social History Smoking Status: Never Smoked - CARDIAC Hx Angina: Yes (Chest pain) - PULMONARY Hx Pneumonia: Yes (this visit) - NEUROLOGICAL Hx Neurological Disorder: No - HEENT Hx HEENT Problems: No - RENAL Hx Chronic Kidney Disease: No - ENDOCRINE/METABOLIC Hx Hyperthyroidism: Yes Hx Systemic Lupus Erythematosus: Yes - HEMATOLOGICAL/ONCOLOGICAL Hx Blood Disorders: No - INTEGUMENTARY Hx Dermatological Problems: No - MUSCULOSKELETAL/RHEUMATOLOGICAL Hx Arthritis: Yes (Rheumatoid) Hx Falls: No - GASTROINTESTINAL Hx Gastrointestinal Disorders: No - GENITOURINARY/GYNECOLOGICAL Hx Genitourinary Disorders: No - PSYCHIATRIC Hx Substance Use: No - SURGICAL HISTORY Hx Surgeries: No - ANESTHESIA Hx Anesthesia: No Hx Anesthesia Reactions: No Meds Allergies/Adverse Reactions: Allergies Allergy/AdvReac Type Severity Reaction Status Date / Time No Known Allergies Allergy Verified 11/28/17 18:46 - Medications Medications: Current Medications Albuterol/Ipratropium (Duoneb 3 Mg/0.5 Mg (3 Ml) Ud) 3 ml IH [id number] [facility] Hydroxychloroquine Sulfate (Plaquenil) 200 mg PO BID [place]; Protocol Ceftriaxone Sodium (Rocephin 1 Gram Ivpb) 1 gm in 100 mls @ 200 mls/hr IVPB DAILY [facility]; Protocol Azithromycin (Zithromax 500mg In Ns) 500 mg in 250 mls @ 167 mls/hr IVPB STAT STA; Protocol Stop: 11/29/17 12:11 Azithromycin (Zithromax 500mg In Ns) 500 mg in 250 mls @ 167 mls/hr IVPB DAILY R[place]; Protocol Levothyroxine Sodium (Synthroid) 100 mcg PO DAILY [place] Methotrexate (Methotrexate) 3 mg PO QWK [place] Physical Exam - Constitutional Appears: No Acute Distress, Chronically Ill - Head Exam Head Exam: NORMAL INSPECTION - Respiratory Exam Respiratory Exam: absent: Rales, Rhonchi - Cardiovascular Exam Cardiovascular Exam: +S1, +S2 - GI/Abdominal Exam GI & Abdominal Exam: Soft. absent: Tenderness Results - Vital Signs Recent Vital Signs: Last Vital Signs Temp 98.0 F 11/29/17 06:00 Pulse 69 11/29/17 06:00 Resp 20 11/29/17 06:00 BP 99/66 L 11/29/17 06:00 Pulse Ox 99 11/29/17 06:00 - Labs Result Diagrams: 11/28/17 19:05 11/28/17 21:50 Labs: Laboratory Results - last 24 hr 11/28/17 11/28/17 11/28/17 19:05 19:05 19:05 WBC 3.9 L D RBC 3.36 L Hgb 9.9 L Hct 30.4 L MCV 90.5 MCH 29.5 MCHC 32.6 RDW 13.2 Plt Count 342 MPV 9.4 Gran % 67.7 Lymph % (Auto) 21.5 L [place] % (Auto) 7.9 H Eos % (Auto) 2.6 Baso % (Auto) 0.3 Gran # 2.65 Lymph # (Auto) 0.8 L [place] # (Auto) 0.3 Eos # (Auto) 0.1 Baso # (Auto) 0.01 D-Dimer, Quantitative Sodium Potassium Chloride Carbon Dioxide Anion Gap BUN Creatinine Est GFR ( Amer) Est GFR (Non-Af Amer) Random Glucose Calcium Magnesium Total Bilirubin AST ALT Alkaline Phosphatase Lactate Dehydrogenase Total Creatine Kinase Troponin I NT-Pro-B Natriuret Pep Total Protein Albumin Globulin Albumin/Globulin Ratio Urine Color Yellow Urine Appearance Clear Urine pH 7.0 Ur Specific [place] 1.020 Urine Protein Negative Urine Glucose (UA) Negative Urine Ketones Negative Urine Blood Negative Urine Nitrate Negative Urine Bilirubin Negative Urine Urobilinogen 1.0 H Ur Leukocyte Esterase Negative Urine Opiates Screen Negative Urine Methadone Screen Negative Ur Barbiturates Screen Negative Ur Phencyclidine Scrn Negative Ur Amphetamines Screen Negative U Benzodiazepines Scrn Negative U Oth Cocaine Metabols Negative U Cannabinoids Screen Negative 11/28/17 11/28/17 21:50 21:50 WBC RBC Hgb Hct MCV MCH MCHC RDW Plt Count MPV Gran % Lymph % (Auto) [place] % (Auto) Eos % (Auto) Baso % (Auto) Gran # Lymph # (Auto) [place] # (Auto) Eos # (Auto) Baso # (Auto) D-Dimer, Quantitative 320 H Sodium 139 Potassium 3.9 Chloride 104 Carbon Dioxide 26 Anion Gap 13 BUN 9 Creatinine 0.6 L Est GFR ( Amer) > 60 Est GFR (Non-Af Amer) > 60 Random Glucose 81 Calcium 8.8 Magnesium 1.6 L Total Bilirubin 0.2 AST 36 ALT 16 Alkaline Phosphatase 77 Lactate Dehydrogenase 496 Total Creatine Kinase 84 Troponin I < 0.01 NT-Pro-B Natriuret Pep 40.5 Total Protein 8.8 H Albumin 3.9 Globulin 4.9 Albumin/Globulin Ratio 0.8 L Urine Color Urine Appearance Urine pH Ur Specific [place] Urine Protein Urine Glucose (UA) Urine Ketones Urine Blood Urine Nitrate Urine Bilirubin Urine Urobilinogen Ur Leukocyte Esterase Urine Opiates Screen Urine Methadone Screen Ur Barbiturates Screen Ur Phencyclidine Scrn Ur Amphetamines Screen U Benzodiazepines Scrn U Oth Cocaine Metabols U Cannabinoids Screen Assessment & Plan - Assessment and Plan (Free Text) Plan: Assessment R/O right upper lobe community-acquired pneumonia SLE Rheumatoid arthritis on Methotrexate hypothyroidism Plan Started on Rocephin and Zithromax pending blood and sputum cx, PCT, urine Legionella Ag; reviewed CT chest - patient does not have cough or sputum production, no fevers or night sweats and no lymphadenopathy on CT chest, making TB unlikely - her symptoms also not classic for pneumonia will check HIV test as well will monitor clinically
--- NOTE | 2017-11-29 23:08 | HP ---
HISTORY OF PRESENT ILLNESS: She came into the emergency last night with generalized pain for 2 months. No falls. No trauma, also has been back pain that come and go every now and then, a little cough every now and then she tells me, some shortness of breath from time to time that comes and goes. She is a 42-year-old female with a history of rheumatoid arthritis, lupus, hypothyroidism, and now she has these weird vague complaints of the chest, the back, cough every now and then, occasional shortness of breath and so the daughter told her to come to the hospital. 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 PAST MEDICAL HISTORY: She has hyperthyroidism, rheumatoid arthritis, chronic joint pain. She is also complaining of left calf pain which came on. FAMILY HISTORY: Unknown family history, No smoker. No alcohol. No drugs. ALLERGIES: NO KNOWN DRUG ALLERGIES. MEDICATIONS: She is on Plaquenil, methotrexate REVIEW OF SYSTEMS: No fever or fatigue. No acute vision or hearing changes. There is shortness of breath or cough every now and then, none now; also chest pain every now and then, and back pain every now and then, and it is being getting steadily worse over the past 2 months. Cough has been productive every now and then. Abdomen is no pain. No nausea, vomiting, constipation, or diarrhea. She does have arthralgias in her joints, it comes and goes. No rashes or itchy. No headache or dizzy. No anxiety, depression, or suicidal thoughts. PHYSICAL EXAMINATION: VITAL SIGNS: She has a 98 temperature, 69 pulse, 99/66 blood pressure, 20 respiratory rate and 99% O2 sat. GENERAL: Well appearing, nontoxic, comfortable, alert and oriented x3. She is very pleasant. HEENT: Head is atraumatic, normocephalic. Extraocular muscles are intact. Pupils react to light and accommodations. Throat is moist. NECK: Supple. HEART: Regular rate. Normal S1, S2. LUNGS: Decreased breath sounds, occasional rhonchi. It is a congestion that changes with cough. No wheezes, but there is a little decreased breath sounds. ABDOMEN: Soft, nontender. Positive bowel sounds. No guarding, no rebound or CVA tenderness. EXTREMITIES: The left leg calf is little bit swollen compared to the right that is also tender and do a venous Doppler of the left calf. That has been going on for a few days. NEUROLOGIC: GCS is 15. Cranial nerves II-XII grossly intact. Speech is normal. Alert and oriented x3 SKIN: Warm and dry. No apparent rashes or ulcers. Thyroid midline. No palpable lymphadenopathy appreciated. LABORATORY DATA:. She had a chest x-ray that was clear, but because the D-dimer is elevated, they did a CAT scan of the chest and they found a right upper lobe pneumonia on the CAT scan of the chest. Also she had labs. She has a urine drug screen that is negative. She has urine that is negative. She has 139 sodium, potassium of 3.9, BUN 9, creatinine 0.6, GFR is greater than 60, sugar is 81, calcium is 8.8, magnesium 1.6, total bili is 0.2, AST is 36, ALT is 16, alk phos 77, lactate dehydrogenase is 496, total creatinine kinase is 84. Troponin I is less than 0.01. BNP is 40.5, total protein is 8.8. She has a D-dimer that was high at 320 that is with a CAT scan of the chest came in, they found the pneumonia, a 3.9 white count, 9.9 hemoglobin, 30.4 hematocrit with 342 platelets. ASSESSMENT AND PLAN: She has a right upper quadrant patchy infiltrate. She has left leg calf pain and swelling. We will check a venous Dopplers also. She has rheumatoid arthritis and on immunosuppressive medications. She will be on Zithromax, DuoNebs, Rocephin. She will be on her methotrexate, her Plaquenil, her thyroid medication. I called in Pulmonary and I called in Infectious Disease for the hospital-acquired pneumonia and hopefully she will be improved in next 2 to 3 days and made her an inpatient, they do not think this hospital-acquired pneumonia will leave in 24 hours. Doug Bonds DO MTDGreta
[2017-11-30] MEDS: Albuterol-Ipratrop 3 mg / 0.5 (3 ml) UD IH SCH ×4 (02:20→20:04)
[2017-11-30 07:21] LABS: HEMOGLOBIN 9.9 g/dL (12.0-16.0); MEAN CELL VOLUME 88.6 fl (80.0-105.0); MEAN CORPUSCULAR HEMOGLOBIN 28.9 pg (25.0-35.0); MEAN CORPUSCULAR HGB CONC 32.7 g/dl (31.0-37.0); MEAN PLATELET VOLUME 8.7 fl (7.0-11.0); RBC 3.42 10^6/uL (3.5-6.1); RED CELL DISTRIBUTION WIDTH 12.8 % (11.5-14.5); WHITE BLOOD COUNT 3.1 10^3/ul (4.5-11.0)
--- NOTE | 2017-11-30 07:44 | CON ---
DATE: 11/30/2017 PULMONARY CONSULTATION REASON FOR CONSULTATION: Right upper lobe pneumonia. REFERRING PHYSICIAN: Doug Bonds DO. HISTORY OF PRESENT ILLNESS: I did discuss the case with the night nurse at length. I have also reviewed the chart at length, and discussed the case with the patient at length. The patient is a 42-year-old female, with past medical history significant for systemic lupus erythematosus, rheumatoid arthritis, hypothyroidism, who presented to [facility] yesterday with main complaint of left-sided chest pain "on and off" for the past 2 weeks. The patient is not short of breath at rest. However, she does state to some mild dyspnea on exertion, with occasional cough for the past 1 week. There is no history of sputum production. There is no history of coughing up of blood. There is no history of chest discomfort - made worse with deep respirations. There is no history of temperatures, chills or infectious exposure. There is no history of night sweats, weight loss or appetite change prior to the above events. No history of leg or calf pains. No history of syncope or diaphoresis. No history of recent travel or trauma. REVIEW OF SYSTEMS: No history of nausea, vomiting or diarrhea. No acute urinary symptoms. No new neurologic complaints. Rest of the review of systems is negative. ALLERGIES: NO KNOWN ALLERGIES. SOCIAL HISTORY: Negative for tobacco, negative for alcohol. FAMILY HISTORY: No inheritable diseases. HOME MEDICATIONS: Include methotrexate, Synthroid and Plaquenil. PHYSICAL EXAMINATION: GENERAL: The patient appears comfortable this morning. She is not short of breath at rest. VITAL SIGNS: Temperature is 97.7, pulse 69, respirations 18, blood pressure 111/75. Oxygen saturation on room air is 98%. HEENT: Normocephalic, atraumatic. No JVD. CARDIOVASCULAR: Positive S1 and S2. No S3 gallop. LUNGS: Decreased breath sounds at the bases. Minimal bilateral rhonchi. No wheezing. EXTREMITIES: No clubbing, cyanosis or edema. Calves are nontender to palpation. GI: Abdomen is soft, nontender and nondistended. Bowel sounds are positive. SKIN: No acute rash. NEUROLOGIC: Limited at the present time. PERTINENT LABORATORY DATA: CAT scan of the chest was done on 11/28/2017 as an angiogram protocol. There are two very small patchy infiltrates noted in the periphery of the right apex. There are no masses, nodules or cavities noted. There is no lymphadenopathy. CBC: White count 3.9K, hemoglobin 9.9, hematocrit 30.4, platelets of 342,000. Complete metabolic profile: Magnesium 1.6, protein 8.8. Rest of the metabolic profile is within normal limits. IMPRESSION: 1. Right upper lobe pneumonia. 2. Mild bronchitis. 3. Mild anemia. 4. Systemic lupus erythematosus. 5. Rheumatoid arthritis. PLAN: Again, I did discuss the case with the night nurse at length. I have also reviewed the chart at length, and discussed the case with the patient at length. The patient presents to [facility] with main complaint of left-sided chest pain "on and off" for the past 2 weeks. In addition, the patient also complains of some mild dyspnea on exertion, and occasional cough for the past 1 week. There are no other pulmonary symptoms. I did review the CAT scan of the chest - noted above. Again, there are two very small patchy infiltrates noted in the periphery of the right apex. Again, it is not known at this time whether these are chronic changes - as there is no other CAT scan for comparison. I would certainly continue with the treatment for pneumonia at this point in time. Input by Dr. Britt (Infectious Disease) is noted. On physical exam, there is only minimal bronchospasm noted. However, there is no significant alveolar-arterial gradient. Oxygen saturation on room air is 98%. I will continue with the current nebulizer treatments for now. The patient does state to feeling better this morning, and is clinically improved. Additional pulmonary intervention will be based on the clinical status of the patient. I will discuss the above with Dr. Bonds. Thank you very much for this pulmonary consultation. Torsten Guajardo MD JOSE
[2017-11-30 07:49] LABS: ALB/GLOB RATIO 0.8 (1.1-1.8); ALBUMIN 3.6 g/dL (3.0-4.8); ALT/SGPT 15 U/L (7-56); AST/SGOT 31 U/L (14-36); BLOOD UREA NITROGEN 8 mg/dL (7-21); CALCIUM 8.9 mg/dL (8.4-10.5); GFR NON-AFRICAN AMERICAN > 60
--- NOTE | 2017-11-30 08:47 | CARD ---
APPROVED REPORT Date of service: 11/28/2017 EKG Measurement Heart [id number] <Conclusion> Normal sinus rhythm Normal ECG
[2017-11-30] MEDS: Azithromycin 500MG/NS 250ml 500 MG/250 ML BAG IVPB SCH (10:17)
[2017-11-30] MEDS: Levothyroxine 100 MCG TAB PO SCH (10:17)
--- NOTE | 2017-11-30 10:28 | PN ---
DATE: 11/30/2017 SUBJECTIVE: I saw her resting comfortably in bed. She is doing better with her breathing today. She is on DuoNebs, Plaquenil, Rocephin IV, Synthroid, Zithromax IV and home medications. PHYSICAL EXAMINATION: VITAL SIGNS: She has a 97.7 temp, 69 pulse, 111/75 blood pressure, 18 respiratory rate, 98% O2 sat on room air. HEENT: Head is atraumatic, normocephalic. HEART: Regular rate. LUNGS: Decreased breath sounds, but she has a right side poor inspiration, faint wheeze, but changes with cough. ABDOMEN: Soft. EXTREMITIES: Still with the left calf pain. She is immunocompromised with lupus and RA. 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 LABORATORY DATA: She has a 3.1 white count, 9.9 hemoglobin, 30.3 hematocrit with 307 platelets. 139 sodium, potassium is 4, BUN 8, creatinine 0.6, GFR is greater than 60, sugar is 90, calcium is 8.9, total bili is 0.2, AST is 31, ALT is 15, alk phos 57, total protein is 8.1. Urine was clean. Toxicology was clean. Negative Legionella. Negative blood cultures. ASSESSMENT AND PLAN: She saw Dr. Britt and Dr. Guajardo. A chest x-ray shows a right upper lobe pneumonia with bronchitis, anemia, lupus and rheumatoid arthritis. We are going to continue with aggressive treatment and care and hopefully in the next 24 hours, if she improves, we might be able to discharge her. I will discuss that with Dr. Guajardo and Dr. Britt and we will see how she progresses. Doug Bonds DO
[2017-11-30] MEDS: cefTRIAXone 1 gm 1 GM/100 ML BAG IVPB SCH (12:41)
--- NOTE | 2017-11-30 13:37 | CP.PCM.PN ---
Subjective - Date & Time of Evaluation Date of Evaluation: 11/30/17 Time of Evaluation: 10:20 - Subjective Subjective: Patient is comfortable in bed, no fevers, no cough, chest pain is a little less. Objective - Vital Signs/Intake and Output Vital Signs (last 24 hours): Temp Pulse Resp BP Pulse Ox 97.7 F 69 18 111/75 98 11/30/17 06:00 11/30/17 06:00 11/30/17 06:00 11/30/17 06:00 11/30/17 06:00 Intake and Output: 11/30/17 11/30/17 06:59 18:59 Intake Total 120 Balance 120 - Medications Medications: Current Medications Albuterol/Ipratropium (Duoneb 3 Mg/0.5 Mg (3 Ml) Ud) 3 ml IH [id number] ROME Last Admin: 11/30/17 02:20 Dose: Not Given Home Med (Home Med) 1 unit PO QWK [facility] Hydroxychloroquine Sulfate (Plaquenil) 200 mg PO BID [facility]; Protocol Last Admin: 11/29/17 17:15 Dose: 200 mg Ceftriaxone Sodium (Rocephin 1 Gram Ivpb) 1 gm in 100 mls @ 200 mls/hr IVPB DAILY [facility]; Protocol Last Admin: 11/29/17 11:27 Dose: 200 mls/hr Azithromycin (Zithromax 500mg In Ns) 500 mg in 250 mls @ 167 mls/hr IVPB DAILY [facility]; Protocol Levothyroxine Sodium (Synthroid) 100 mcg PO DAILY [facility] - Labs Labs: 11/28/17 19:05 11/28/17 21:50 - Constitutional Appears: No Acute Distress, Chronically Ill - Head Exam Head Exam: NORMAL INSPECTION - Respiratory Exam Respiratory Exam: Decreased Breath Sounds. absent: Rales, Rhonchi - Cardiovascular Exam Cardiovascular Exam: +S1, +S2 - GI/Abdominal Exam GI & Abdominal Exam: Soft. absent: Tenderness Assessment and Plan - Assessment and Plan (Free Text) Plan: Assessment R/O right upper lobe community-acquired pneumonia SLE Rheumatoid arthritis on Methotrexate hypothyroidism Plan on Rocephin and Zithromax day 2 pending blood and sputum cx, urine Legionella Ag; PCT is only 0.05 making bacterial pneumonia unlikely reviewed CT chest - patient does not have cough or sputum production, no fevers or night sweats and no lymphadenopathy on CT chest, making TB unlikely - her symptoms also not classic for pneumonia - if cultures are negative, may d/c rocephin and finish 5 days of zithromax follow up HIV test will continue to monitor clinically
[2017-11-30 18:36] VITALS: RESP 20
--- NOTE | 2017-11-30 19:58 | US ---
PROCEDURE: Left lower extremity venous US HISTORY: Leg pain and swelling. Evaluate for DVT. PHYSICIAN(S): Дмитрий Beltran MD. TECHNIQUE: Duplex sonography and color-flow Doppler with graded compression were used to evaluate the deep venous system of the left lower extremity. FINDINGS: The visualized deep venous system of the left lower extremity is sonographically normal and compressible. Normal wave forms and augmentation are seen. There is no sonographic evidence for deep venous thrombosis in the visualized segments of the left lower extremity. IMPRESSION: 1. No sonographic evidence for deep venous thrombosis in the visualized segments of the left lower extremity.
[2017-12-01] MEDS: Albuterol-Ipratrop 3 mg / 0.5 (3 ml) UD IH SCH ×2 (03:10→08:18)
[2017-12-01 06:12] VITALS: BP 102/58; PULSE 79; TEMP 98; O2SAT 99
--- NOTE | 2017-12-01 07:38 | PN ---
DATE: 12/01/2017 PULMONARY NOTE SUBJECTIVE: The patient appears very comfortable this morning. She is not short of breath at rest. She does state to feeling much better overall. PHYSICAL EXAMINATION: VITAL SIGNS: Temperature is 98, pulse 79, respirations 18, blood pressure 102/58. Oxygen saturation on room air is 99%. HEENT: Normocephalic, atraumatic. No JVD. CARDIOVASCULAR: Positive S1, S2. No S3 gallop. LUNGS: Clear bilaterally this morning. EXTREMITIES: No clubbing, cyanosis or edema. Calves are nontender to palpation. GI: Abdomen is soft, nontender and nondistended. Bowel sounds are positive. SKIN: No acute rash. NEUROLOGIC: Limited at the present time. IMPRESSION: 1. Right upper lobe pneumonia. 2. Mild bronchitis. 3. Mild anemia. 4. Systemic lupus erythematosus. 5. Rheumatoid arthritis. PLAN: The patient appears very comfortable this morning. She denies chest pain or shortness of breath this morning. She does state to feeling much much better overall. On physical exam, her lungs are now clear. Oxygen saturation on room air is 99%. I will continue with the current nebulizer treatments for now. The patient remains on antibiotic therapy. There are no temperatures noted. There is no leukocytosis. Cultures are negative at this point in time. Input by Infectious Disease is also noted. Clinical status of the patient appears significantly improved - compared to her initial presentation. The patient is for probable discharge in the near future. If/when discharged, I did give the patient my card/information for a followup appointment. I will also discuss the above with Dr. Bonds this morning. Torsten Guajardo MD JOSE
--- NOTE | 2017-12-01 10:01 | DS ---
SUBJECTIVE: She is resting comfortably in bed. She is breathing much better. She is doing much better finally. She was on albuterol, Plaquenil, methotrexate, Rocephin and Zithromax. PHYSICAL EXAMINATION: VITAL SIGNS: Temperature 98, pulse 79, 102/58 blood pressure, 20 respiratory rate, 99% O2 sat on room air. HEAD: Atraumatic, normocephalic. HEART: Regular rate. LUNGS: Decreased breath sounds, but clear. ABDOMEN: Soft. EXTREMITIES: No edema. LABORATORY DATA: She has a 3.1 white count, 9.9 hemoglobin, 30.3 hematocrit with 307 platelets. Sodium 139, potassium 4, BUN 8, creatinine 0.6, GFR greater than 60, sugar is 90, calcium is 8.9, total bili is 0.2, AST is 31, ALT is 15, alk phos 57, total protein is 8.2. She was not . Cultures were good. She did have a a left leg pain. We did a venous Doppler. It was negative. I spoke to the web merchandiser. She is able to be discharged today and I spoke to the Infectious Disease doctor. She will be on Ceftin 500 twice a day for 7 days and Zithromax 250 one a day for 7 days and she is discharged today. She will follow up with her primary care doctor in 2 days. She is here for pneumonia. Doug Bonds DO
[2017-12-01] MEDS: Azithromycin 500MG/NS 250ml 500 MG/250 ML BAG IVPB SCH (11:31)
[2017-12-01] MEDS: Levothyroxine 100 MCG TAB PO SCH (11:31)
[2017-12-01] MEDS: cefTRIAXone 1 gm 1 GM/100 ML BAG IVPB SCH (11:31)
--- NOTE | 2017-12-02 02:19 | PN ---
DATE: 12/01/2017 SUBJECTIVE: The patient is seen early this morning in room 271, bed 1. No fevers and no chills. Uneventful night. PHYSICAL EXAMINATION: VITAL SIGNS: Temperature of 98, blood pressure is 102/50, respiratory rate 20, heart rate of 70. HEENT: Examination of HEENT is unremarkable. NECK: Supple. LUNGS: Have decreased breath sounds. HEART: Normal S1, S2. ABDOMEN: Soft. LABORATORY DATA: Laboratory examination reveals a white count of 3.1, hemoglobin of 9, platelets of 307, BUN of 8, creatinine of 0.6, procalcitonin 0.05. Urinalysis is noted. Toxicology is noted. Serology of urine Legionella is negative. Blood cultures are no growth. ASSESSMENT AND PLAN: A 42-year-old female seen early this morning, who has right upper lobe community-acquired pneumonia and the patient with lupus, rheumatoid arthritis, on methotrexate and Zithromax, Rocephin with a normal procalcitonin and complete 5 days of Zithromax. Cultures are negative. Discussed with PMD. Sly Sutton MD
[2017-12-06] MEDS ORDERED: METHOTREXATE PO SCH (10:00)
== END 2017-12-01 12:59 | disposition home or self-care (01) | DRG 195 ==
LOC: ED 18:44 → ERH 11-29 00:39 → 2RSO 11-29 02:06 → OBSVTOIN 11-29 10:45
PROVIDERS: ADMIT Family Medicine; ATTEND Family Medicine
DX: J18.9 Pneumonia, unspecified organism (principal); M32.9 Systemic lupus erythematosus, unspecified; M06.9 Rheumatoid arthritis, unspecified; D64.9 Anemia, unspecified; E03.9 Hypothyroidism, unspecified; J40 Bronchitis, not specified as acute or chronic; Z79.899 Other long term (current) drug therapy